=== PATIENT | male | born 1950 | race Caucasian/White ===

== ENCOUNTER 2017-08-10 15:36 | Observation (INO) | payer MEDICARE ==
[2017-08-10 15:51] VITALS: O2SAT 99
[2017-08-10] MEDS ORDERED: Sodium Chloride 0.9% 1,000 ML IV ONE (16:32)
--- NOTE | 2017-08-10 16:38 | C.PDOC ---
History Of Present Illness <Elaine Cano - Last Filed: 08/10/17 18:48> <Scot Spencer - Last Filed: 08/11/17 04:06> 66 yo male BIBA for evaluation of facial contusion, head injury, alcohol intoxication. As per pt, " was drinking today and fell down at home early". Pt is verbal, slurred speech, unable to give more history on present illness. ( Elaine Cano) History Per: Patient, EMS <Elaine Cano - Last Filed: 08/10/17 18:48> <TjScot Palm - Last Filed: 08/11/17 04:06> Time Seen by Provider: 08/10/17 16:05 Chief Complaint (Nursing): Substance Abuse Past Medical History Reviewed: Historical Data, Nursing Documentation, Vital Signs - Medical History PMH: Back Problems, CVA Surgical History: Back Surgery Family History: States: Unknown Family Hx - Social History Hx Tobacco Use: No Hx Alcohol Use: Yes Hx Substance Use: No - Immunization History Hx Tetanus Toxoid Vaccination: Yes (2016) Hx Influenza Vaccination: No Hx Pneumococcal Vaccination: No <Elaine Cano - Last Filed: 08/10/17 18:48> Review Of Systems Review Of Systems: ROS cannot be obtained secondary to pt's inabilty to answer questions. (intoxicated) Skin: Positive for: Bruising <Elaine Cano - Last Filed: 08/10/17 18:48> Physical Exam - Physical Exam Appears: Non-toxic Skin: Normal Color, Warm, Ecchymosis (facial) Head: Normacephalic, Abrasion (Left face overlying zygoma with mod edema. no palpable deformity.) Eye(s): bilateral: PERRL (2mm, slugish reactive to light B/L) Ear(s): Bilateral: Normal Nose: No Flaring, No Deformity, No Tenderness Oral Mucosa: Moist, No Drooling, No Trismus Tongue: Normal Appearing, No Bite Lips: Normal Appearing Throat: No Drooling Neck: No Midline Cervical Tenderness, No Paracervical Tenderness, No Step Off Deformity, Supple Cardiovascular: Rhythm Regular Respiratory: No Decreased Breath Sounds, No Accessory Muscle Use, No Rales, No Rhonchi, No Stridor, No Wheezing Gastrointestinal/Abdominal: Soft, No Tenderness, No Distention, No Guarding Back: No CVA Tenderness, No Vertebral Tenderness Extremity: Normal ROM (noted to move B/L UEs and LEs without difficulty.), No Deformity, No Swelling Neurological/Psych: Oriented x3, Normal Speech, Normal Motor, Normal Sensation <Elaine Cano - Last Filed: 08/10/17 18:48> ED Course And Treatment - Laboratory Results Result Diagrams: 08/10/17 17:50 08/10/17 17:50 Lab Interpretation: Normal O2 Sat by Pulse Oximetry: 99 Pulse Ox Interpretation: Normal - CT Scan/US Head CT Other Rad Studies (CT/US): Read By Radiologist, Radiology Report Reviewed CT/US Interpretation: Accession No. : [id number]. Patient Name / ID : BUD CESAR / [id number]. Exam Date : 08/10/2017 16:55:58 ( Approved ). Study Comment : Sex / Age : M / 66Y. Creator : Jeny Wilhelm. Dictator : Jeny Wilhelm. 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 Approver2 : Report Date : 08/10/2017 17:29:51. My Comment : . PROCEDURE: CT HEAD WITHOUT CONTRAST. HISTORY: injury. COMPARISON: Comparison is made to the previous study dated 12/20/2016. TECHNIQUE: Axial computed tomography images were obtained through the head/brain without intravenous contrast. Radiation dose: Total exam DLP = 923.63 mGy-cm. This CT exam was performed using one or more of the following dose reduction techniques: Automated exposure control, adjustment of the mA and/or kV according to patient size, and/or use of iterative reconstruction technique. FINDINGS: HEMORRHAGE: No intracranial hemorrhage. BRAIN: Small encephalomalacia at the left basal ganglia and thalamus are again seen suggestive of old lacunar infarct. Moderate atrophy and chronic microvascular white matter ischemic disease are again noted. VENTRICLES : Unremarkable. No hydrocephalus. CALVARIUM: Unremarkable. PARANASAL SINUSES : Unremarkable as visualized. No significant inflammatory changes. MASTOID AIR CELLS: Unremarkable as visualized. No inflammatory changes. OTHER FINDINGS : None. IMPRESSION: No evidence of acute intracranial hemorrhage intracranial collection mass effect or midline shift. Moderate atrophy and moderate chronic microvascular white matter ischemic disease. Maxillofacial CT Other Rad Studies (CT/US): Read By Radiologist, Radiology Report Reviewed CT/US Interpretation: PROCEDURE: CT MAXILLOFACIAL BONES WITHOUT CONTRAST. HISTORY: injury. COMPARISON: None. TECHNIQUE: Contiguous axial CT images of the maxillofacial bones were obtained. Coronal and sagittal reformats were generated. Radiation dose: Total exam DLP = 898.84 mGy-cm. This CT exam was performed using one or more of the following dose reduction techniques: Automated exposure control, adjustment of the mA and/or kV according to patient size, and/or use of iterative reconstruction technique. FINDINGS: NASAL BONES : Nondisplaced left nasal bone fracture. ORBITS: Unremarkable. PARANASAL SINUSES/ MASTOIDS: 2.2 centimeter mucosal retention cyst versus polyp at the right maxillary sinus. At the. MAXILLA: Unremarkable. MANDIBLE/ TEMPOROMANDIBULAR JOINTS: Unremarkable. SKULL BASE: Unremarkable. TEMPORAL BONES: Middle ears and mastoid grossly unremarkable. OTHER FINDINGS: Subcutaneous soft tissue swelling and small hematoma at the left face anterior to the maxillary sinus. IMPRESSION: Nondisplaced fracture at the left nasal bone. Otherwise no evidence of acute fracture at the maxillofacial bones. <Elaine Cano - Last Filed: 08/10/17 18:48> - Laboratory Results Result Diagrams: 08/10/17 17:50 08/10/17 17:50 <Scot Spencer - Last Filed: 08/11/17 04:06> ED OBSERVATION Date of observation admission: 08/10/17 Time of observation admission: 16:50 <Elaine Cano - Last Filed: 08/10/17 18:48> <Scot Spencer - Last Filed: 08/11/17 04:06> - Observation admission statement Patient is being placed in observation because:: Alcohol intoxication, head injury (Elaine Cano) - Goals of Observation Goals of observation are:: Diagnostics, imaging, neuro re-eval, dispo (Elaine Cano) - Progress Note Progress Note: 08/10/17 At 18:52, pt resting comfortably in bed, not in any apparent distress. AFebrile, hemodynamicaly stable. Pt is easily responsive to verbal stimuli. Neuorlogicaly intact. Diagnosis review and appears normal. Imaging review- small nasal bone fracture, otherwise, no other acute abnormalities. Pt sign out to for further care: sobriety, re-eval, dispo (Elaine Cano) Disposition <Elaine Cano - Last Filed: 08/10/17 18:48> Counseled Patient/Family Regarding: Diagnosis - Disposition Disposition Time: 05:30 - POA Present On Arrival: None <Scot Spencer - Last Filed: 08/11/17 04:06> - Disposition Disposition: HOME/ ROUTINE Condition: STABLE - Clinical Impression Clinical Impression: Alcohol intoxication, Fracture closed, nasal bone Physician Patient Turnover Patient Signed Over To: Scot Spencer Handoff Comments: Sobriety, re-eval, dispo <Elaine Cano - Last Filed: 08/10/17 18:48>
--- NOTE | 2017-08-10 17:31 | CT ---
PROCEDURE: CT HEAD WITHOUT CONTRAST. HISTORY: injury COMPARISON: Comparison is made to the previous study dated 12/20/2016 TECHNIQUE: Axial computed tomography images were obtained through the head/brain without intravenous contrast. Radiation dose: Total exam DLP = 923.63 mGy-cm. This CT exam was performed using one or more of the following dose reduction techniques: Automated exposure control, adjustment of the mA and/or kV according to patient size, and/or use of iterative reconstruction technique. FINDINGS: HEMORRHAGE: No intracranial hemorrhage. BRAIN: Small encephalomalacia at the left basal ganglia and thalamus are again seen suggestive of old lacunar infarct. Moderate atrophy and chronic microvascular white matter ischemic disease are again noted. VENTRICLES: Unremarkable. No hydrocephalus. CALVARIUM: Unremarkable. PARANASAL SINUSES: Unremarkable as visualized. No significant inflammatory changes. MASTOID AIR CELLS: Unremarkable as visualized. No inflammatory changes. OTHER FINDINGS: None. IMPRESSION: No evidence of acute intracranial hemorrhage intracranial collection mass effect or midline shift. Moderate atrophy and moderate chronic microvascular white matter ischemic disease.
--- NOTE | 2017-08-10 17:38 | CT ---
PROCEDURE: CT MAXILLOFACIAL BONES WITHOUT CONTRAST HISTORY: injury COMPARISON: None TECHNIQUE: Contiguous axial CT images of the maxillofacial bones were obtained. Coronal and sagittal reformats were generated. Radiation dose: Total exam DLP = 898.84 mGy-cm. This CT exam was performed using one or more of the following dose reduction techniques: Automated exposure control, adjustment of the mA and/or kV according to patient size, and/or use of iterative reconstruction technique. FINDINGS: NASAL BONES: Nondisplaced left nasal bone fracture. ORBITS: Unremarkable. PARANASAL SINUSES/ MASTOIDS: 2.2 centimeter mucosal retention cyst versus polyp at the right maxillary sinus. At the MAXILLA: Unremarkable. MANDIBLE/ TEMPOROMANDIBULAR JOINTS: Unremarkable. SKULL BASE: Unremarkable. TEMPORAL BONES: Middle ears and mastoid grossly unremarkable. OTHER FINDINGS: Subcutaneous soft tissue swelling and small hematoma at the left face anterior to the maxillary sinus. IMPRESSION: Nondisplaced fracture at the left nasal bone. Otherwise no evidence of acute fracture at the maxillofacial bones.
[2017-08-10] MEDS ORDERED: Sodium Chloride 0.9% 1,000 ML ONE (17:39)
[2017-08-10 17:58] LABS: BASO % 0.5 % (0.0-2.0); EOS % 0.4 % (0.0-4.0); HEMATOCRIT 36.9 % (35.0-51.0); LYMPH % 23.3 % (20.0-40.0); MEAN CELL VOLUME 106.3 fL (80.0-94.0); MEAN CORPUSCULAR HEMOGLOBIN 36.9 pg (27.0-31.0); MEAN CORPUSCULAR HGB CONC 34.7 g/dL (33.0-37.0); MEAN PLATELET VOLUME 8.8 fL (7.2-11.7); MONO # 0.5 K/uL (0.0-0.8); MONO % 5.6 % (0.0-10.0); RED CELL DISTRIBUTION WIDTH 13.2 % (11.5-14.5); WHITE BLOOD COUNT 8.4 K/uL (4.8-10.8)
[2017-08-10 18:01] LABS: CHLORIDE 105 mmol/L (98-107)
[2017-08-10 18:02] LABS: POTASSIUM 3.6 mmol/L (3.6-5.2); SODIUM 147 mmol/L (132-148)
[2017-08-10 18:04] LABS: ALB/GLOB RATIO 1.5 (1.0-2.1); ALKALINE PHOSPHATASE 55 U/L (38-126); ALT/SGPT 34 U/L (21-72); AST/SGOT 38 U/L (17-59); BILIRUBIN,TOTAL 1.2 mg/dL (0.2-1.3); BLOOD UREA NITROGEN 10 mg/dL (9-20); CARBON DIOXIDE 28 mmol/L (22-30); GFR AFRICAN-AMERICAN > 60; GLUCOSE,RANDOM 84 mg/dL (75-110); TOTAL PROTEIN 7.5 g/dL (6.3-8.3)
[2017-08-10 18:05] LABS: ALCOHOL SERUM 159 mg/dl (0-10); CALCIUM 9.1 mg/dl (8.6-10.4)
[2017-08-10 19:51] LABS: RBC URINE < 1 /hpf (0-3); URINE BILIRUBIN NEGATIVE (NEGATIVE); URINE BLOOD NEGATIVE (NEGATIVE); URINE COLOR Yellow (YELLOW); URINE GLUCOSE (UA) NORMAL (Normal); URINE KETONE NEGATIVE (NEGATIVE); URINE LEUKOCYTE ESTERASE NEG Leu/uL (Negative); URINE PROTEIN NEGATIVE (NEGATIVE); WBC URINE < 1 /hpf (0-5)
[2017-08-11 03:22] VITALS: RESP 16
[2017-08-11 05:40] VITALS: BP 138/88; PULSE 98; TEMP 98.5
== END 2017-08-11 05:27 | disposition home or self-care (01) ==
LOC: C.ER 15:36 → C.9OBSV 16:50
PROVIDERS: ADMIT Emergency Medicine; ATTEND Emergency Medicine
DX: F10.229 Alcohol dependence with intoxication, unspecified (principal); S02.2XXA Fracture of nasal bones, initial encounter for closed fracture; S09.90XA Unspecified injury of head, initial encounter; X58.XXXA Exposure to other specified factors, initial encounter
CPT/HCPCS: 70450; 70486; 80053; 81001; 85025; 96360; G0378; G0480; J7040

== ENCOUNTER 2017-11-02 22:56 | Emergency (ER) | payer MEDICARE ==
[2017-11-02 23:11] VITALS: RESP 18
[2017-11-02] MEDS ORDERED: Bacitracin 500 Units/gm Oint Foilpak UD TOP ONE (23:45)
[2017-11-02] MEDS ORDERED: Epinephrine /Lidocaine HCL 1:100,000/2% 30 ml INJ ONE (23:45)
[2017-11-03] MEDS ORDERED: Bacitracin 500 Units/gm Oint Foilpak UD ONE (00:01)
[2017-11-03] MEDS ORDERED: Lidocaine 2% Inj (20ml) ONE (00:01)
[2017-11-03 00:09] LABS: BASO % 0.5 % (0.0-2.0); EOS % 0.4 % (0.0-4.0); HEMATOCRIT 36.8 % (35.0-51.0); LYMPH # 1.2 K/uL (1.0-4.3); LYMPH % 23.2 % (20.0-40.0); MEAN CELL VOLUME 104.7 fL (80.0-94.0); MEAN CORPUSCULAR HEMOGLOBIN 35.7 pg (27.0-31.0); MEAN CORPUSCULAR HGB CONC 34.1 g/dL (33.0-37.0); MEAN PLATELET VOLUME 8.5 fL (7.2-11.7); MONO # 0.4 K/uL (0.0-0.8); MONO % 7.1 % (0.0-10.0); RED CELL DISTRIBUTION WIDTH 13.2 % (11.5-14.5); WHITE BLOOD COUNT 5.4 K/uL (4.8-10.8)
[2017-11-03 00:30] LABS: ALB/GLOB RATIO 1.1 (1.0-2.1); ALCOHOL SERUM < 10 mg/dl (0-10); ALKALINE PHOSPHATASE 52 U/L (38-126); ALT/SGPT 30 U/L (21-72); AST/SGOT 19 U/L (17-59); BILIRUBIN,TOTAL 1.3 mg/dL (0.2-1.3); BLOOD UREA NITROGEN 8 mg/dL (9-20); CALCIUM 8.5 mg/dl (8.6-10.4); CARBON DIOXIDE 32 mmol/L (22-30); CHLORIDE 101 mmol/L (98-107); GFR AFRICAN-AMERICAN > 60; GLUCOSE,RANDOM 87 mg/dL (75-110); POTASSIUM 3.6 mmol/L (3.6-5.2); SODIUM 140 mmol/L (132-148); TOTAL PROTEIN 8.2 g/dL (6.3-8.3)
--- NOTE | 2017-11-03 00:42 | C.PDOC ---
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 Patient is a poor historian and reports to the RN that he had "2 shots of vodka". Denies LOC, neck pain, or headache. Time Seen by Provider: 11/02/17 23:07 Chief Complaint (Nursing): Abnormal Skin Integrity History Per: Patient History/Exam Limitations: no limitations Onset/Duration Of Symptoms: Hrs Current Symptoms Are (Timing): Still Present Location Of Injury: Left: Face Quality Of Symptoms: Other (Laceration) Recent travel outside of the [place]: No Past Medical History Reviewed: Historical Data, Nursing Documentation, Vital Signs Vital Signs: Last Vital Signs Temp 98.6 F 11/03/17 05:36 Pulse 81 11/03/17 05:36 Resp 18 11/03/17 05:36 BP 115/70 11/03/17 05:36 Pulse Ox 100 11/03/17 05:36 - Medical History PMH: Back Problems, CVA Surgical History: Back Surgery Family History: States: Unknown Family Hx - Social History Hx Tobacco Use: No Hx Alcohol Use: Yes Hx Substance Use: No - Immunization History Hx Tetanus Toxoid Vaccination: Yes (2015) Hx Influenza Vaccination: No Hx Pneumococcal Vaccination: No Review Of Systems Except As Marked, All Systems Reviewed And Found Negative. Musculoskeletal: Negative for: Neck Pain Skin: Positive for: Other (Laceration) Neurological: Negative for: Headache, Other (LOC) Physical Exam - Physical Exam Appears: Non-toxic Skin: Normal Color, Warm, Dry Head: Normacephalic, Laceration (4cm Y shaped laceration to left eyebrow), Other (2cm area of swelling and abrasion to left cheek) Eye(s): bilateral: Normal Inspection, PERRL, EOMI, Other (arcus senilis) Ear(s): Bilateral: Normal Oral Mucosa: Moist Neck: Normal, No Midline Cervical Tenderness, No Paracervical Tenderness, Supple Chest: Symmetrical, Tenderness (Mild left anterior chest wall) Cardiovascular: Rhythm Regular, No Friction Rub, No Murmur Respiratory: Normal Breath Sounds, No Rales, No Rhonchi, No Wheezing Gastrointestinal/Abdominal: Soft, No Tenderness Back: No CVA Tenderness, No Vertebral Tenderness, No Paraspinal Tenderness Extremity: Normal ROM (x4), No Deformity Neurological/Psych: Oriented x3, Normal Speech, Normal Cranial Nerves, Normal Motor, Normal Sensation Gait: Steady ED Course And Treatment - Laboratory Results Result Diagrams: 11/03/17 00:04 11/03/17 00:04 O2 Sat by Pulse Oximetry: 99 (Room air) Pulse Ox Interpretation: Normal Laceration - Laceration Repair eyebrow Wound Length (In cm): 4 Description Of Wound: Stellate (Y-shaped) Wound Cleansed With: Betadine, Sterile Saline Anesthesia: Lidocaine 1% Wound Examination: Irrigated With Saline, No FB With Wound Exploration Wound Closure: Suture Suture Technique And Material Used: Prolene (Six), Vicryl (Two) Wound Complexity: Intermediate (2 buried sutures) Medical Decision Making Medical Decision Making: Upon further questioning, patient reports he fell 2 days ago and injured his left ribs. CT cervical spine, CT head, CT maxillofacial, and CXR ordered. On re-exam, the patient reports improvement of symptoms. Abdomen is soft, non- tender and tolerating PO well. Lungs are CTA, heart is RRR. Ambulatory in the ED steady gait. Disposition - Disposition Referrals: [facility] [Outside] Disposition: HOME/ ROUTINE Disposition Time: 05:03 Condition: GOOD Additional Instructions: Clean the wound twice a day and apply bacitracin. Sutures to be removed within 5 -7 days. Follow up with the medical doctor within 1-2 days. Return if worsened Prescriptions: Bacitracin Ointment [Bacitracin] 30 gm TOP BID #1 tube Instructions: Nasal Fracture (ED), Facial Contusion (ED) Forms: [employer] (Sammarinese) - POA Present On Arrival: None - Clinical Impression Clinical Impression: Eyebrow laceration, Nasal fracture, Head injury - PA / MECHATRONICS TECHNOLOGIST / Resident Statement MD/DO has reviewed & agrees with the documentation as recorded. - Scribe Statement The provider has reviewed the documentation as recorded by the Scribrocio Kirby All medical record entries made by the Scribe were at my direction and personally dictated by me. I have reviewed the chart and agree that the record accurately reflects my personal performance of the history, physical exam, medical decision making, and the department course for this patient. I have also personally directed, reviewed, and agree with the discharge instructions and disposition.
--- NOTE | 2017-11-03 01:37 | CT ---
EXAM: CT Head Without Intravenous Contrast CLINICAL HISTORY: 67 years old, male; Injury or trauma; Fall; Initial encounter; Blunt trauma (contusions or hematomas); Consciousness not specified; Additional info: Head injury R/O bleeding TECHNIQUE: Axial computed tomography images of the head/brain without intravenous contrast. All CT scans at this facility use one or more dose reduction techniques, viz.: automated exposure control; ma/kV adjustment per patient size (including targeted exams where dose is matched to indication; i.e. head); or iterative reconstruction technique. Coronal and sagittal reformatted images were created and reviewed. COMPARISON: No relevant prior studies available. FINDINGS: Brain: Moderate atrophy. No intracranial hemorrhage. No mass. Few scattered foci of decreased attenuation within periventricular/subcortical white matter. Probable chronic lacunar infarcts about basal ganglia. Chronic lacunar infarct within LEFT thalamus. No edema. Ventricles: No hydrocephalus. Bones/joints: No calvarial fracture. Soft tissues: Minimal scalp swelling. Vasculature: Mild atherosclerotic disease of intracranial arteries. Mastoid air cells: No mastoid effusion. IMPRESSION: 1. No intracranial hemorrhage. 2. Nonspecific white matter changes. 3. See facial bone CT report for additional details. 4. Incidental/non-acute findings are described above.
--- NOTE | 2017-11-03 01:44 | CT ---
EXAM: CT Maxillofacial Without Intravenous Contrast CLINICAL HISTORY: 67 years old, male; Injury or trauma; Fall; Initial encounter; Laceration; Orbit/periorbital; Left; Without residual foreign body; Additional info: Facial injuries, nasal trauma, swelling l cheek TECHNIQUE: Axial computed tomography images of the face without intravenous contrast. All CT scans at this facility use one or more dose reduction techniques, viz.: automated exposure control; ma/kV adjustment per patient size (including targeted exams where dose is matched to indication; i.e. head); or iterative reconstruction technique. Coronal and sagittal reformatted images were created and reviewed. COMPARISON: No relevant prior studies available. FINDINGS: Bones/joints: Minimal diastasis LEFT zygomatic and LEFT zygomaticofrontal sutures, age indeterminate. Nondisplaced fracture RIGHT nasal bone, age indeterminate. Mildly displaced fracture LEFT nasal bone, age indeterminate. Age indeterminate avulsion fracture of maxillary spine vs adjacent soft tissue calcification. Soft tissues: LEFT facial soft tissue swelling/air. Tiny dermal calcification or foreign body LEFT periorbital region. Orbits: Unremarkable as visualized. Sinuses: Scattered minimal to mild mucosal thickening. RIGHT maxillary retention cyst. No air-fluid levels. IMPRESSION: 1. Possible facial fractures as above. 2. Incidental/non-acute findings are described above.
--- NOTE | 2017-11-03 01:48 | CT ---
EXAM: CT Cervical Spine Without Intravenous Contrast CLINICAL HISTORY: 67 years old, male; Injury or trauma; Fall; Initial encounter; Sprain or strain, cervical ligaments; Additional info: Fall, TECHNIQUE: Axial computed tomography images of the cervical spine without intravenous contrast. All CT scans at this facility use one or more dose reduction techniques, viz.: automated exposure control; ma/kV adjustment per patient size (including targeted exams where dose is matched to indication; i.e. head); or iterative reconstruction technique. Coronal and sagittal reformatted images were created and reviewed. COMPARISON: No relevant prior studies available. FINDINGS: Vertebrae: No acute fracture. Degenerative retrolithesis of lower cervical spine. Discs/spinal canal/neural foramina: Early degenerative disc disease within mid cervical spine. Moderate degenerative disc disease within lower cervical spine. Disc herniations within mid and lower cervical spine, suboptimally evaluated. Mild indentation thecal sac/cord mid cervical spine. [id number] indentation thecal sac/cord lower cervical spine. Neuroforaminal narrowing within lower cervical spine. Soft tissues: Unremarkable. Vasculature: Mild atherosclerotic disease. Sinuses: Scattered minimal mucosal thickening. RIGHT maxillary retention cyst. Lung apices: Unremarkable as visualized. IMPRESSION: 1. No fracture. 2. Incidental/non-acute findings are described above.
[2017-11-03 05:37] VITALS: BP 115/70; PULSE 81; TEMP 98.6
[2017-11-03 06:51] VITALS: O2SAT 99
--- NOTE | 2017-11-03 09:04 | RAD ---
PROCEDURE: CHEST RADIOGRAPH, 1 VIEW HISTORY: fall, rib contusion COMPARISON: None available. FINDINGS: LUNGS: Clear. PLEURA: No pneumothorax or pleural fluid seen. CARDIOVASCULAR: Normal. OSSEOUS STRUCTURES: Old lateral left 10th rib fracture deformity -possible trace old deformity lateral left 9th rib as well Diffuse thoracic spondylosis Osseous hypertrophic changes over each medial 1st rib -sternum. C7 incomplete closure. VISUALIZED UPPER ABDOMEN: Normal. OTHER FINDINGS: None. IMPRESSION: No acute cardiopulmonary pathology. Old left rib fractures. If clinically suspect acute on chronic pathology, consider more sensitive evaluation with a left or right both ribs series -per patient's pain. No gross acute rib fracture appreciated on this single frontal view
== END 2017-11-03 05:37 | disposition home or self-care (01) ==
LOC: C.ER 22:56
DX: S02.2XXA Fracture of nasal bones, initial encounter for closed fracture (principal); S01.112A Laceration without foreign body of left eyelid and periocular area, initial encounter; W01.0XXA Fall on same level from slipping, tripping and stumbling without subsequent striking against object, initial encounter
CPT/HCPCS: 12052; 70450; 70486; 71010; 72125; 80053; 85025; 85610; 85730; 99285; G0480

== ENCOUNTER 2017-12-17 12:34 | Emergency (ER) | payer MEDICARE ==
[2017-12-17 12:56] VITALS: BP 98/63; PULSE 109; RESP 18; TEMP 97.8; O2SAT 100
--- NOTE | 2017-12-17 13:48 | C.PDOC ---
History Of Present Illness 67 y/o M p/w fall 1 week ago. states patient fell down 8 steps at home 1 week prior. She states she has not been off of work since then but today, she did not have work so she brought her to the ED for evaluation. Patient reports pain of the L shoulder and L sided rib cage, sharp pain, worse with movement or palpation, nonradiating. He states that he was dizzy prior to the fall. He states he was not drinking alcohol. He describes the dizziness as a spinning sensation as opposed to a lightheadedness. He notes that the spinning sensation has been ongoing for some time and is intermittent and occurs when he moves suddenly. Denies fever, chills, chest pain, dyspnea, nausea, vomiting, diarrhea, dysuria, numbness, or weakness. Time Seen by Provider: 12/17/17 13:09 Chief Complaint (Nursing): Dizziness/Lightheaded Past Medical History Vital Signs: Last Vital Signs Temp 97.8 F 12/17/17 12:51 Pulse 109 H 12/17/17 12:51 Resp 18 12/17/17 12:51 BP 98/63 L 12/17/17 12:51 Pulse Ox 100 12/17/17 14:31 - Medical History PMH: Back Problems, CVA Surgical History: Back Surgery Family History: States: Unknown Family Hx - Social History Hx Tobacco Use: No Hx Alcohol Use: No Hx Substance Use: No - Immunization History Hx Tetanus Toxoid Vaccination: Yes (2015) Hx Influenza Vaccination: No Hx Pneumococcal Vaccination: No Review Of Systems Except As Marked, All Systems Reviewed And Found Negative. Constitutional: Negative for: Fever Cardiovascular: Negative for: Chest Pain Physical Exam - Physical Exam Additional Physical Exam Comments: Constitutional: No acute distress. Head: Normocephalic. Prolene sutures in place over L eyebrow (patient states were placed during last ED visit here and thought they were going to disintegrate.) No surrounding erythema or discharge. Hypertrophic nodules at suture sites. Eyes: PERRL. EOMI. Arcus sinilis. ENT: Moist mucous membranes. Neck: Supple. No midline tenderness. Cardiovascular: Regular rate. Radial pulses 2+ bilaterally. Chest: L sided rib tenderness, no obvious deformity or crepitus. Respiratory: Clear to auscultation bilaterally. GI: Soft. Nontender. Back: No midline tenderness. Musculoskeletal: No swelling of extremities. Pain with ranging of L shoulder but with FROM and without deformity. Skin: No rash. Neurologic: Alert, no focal deficit. Reproducible symptoms with Nohemi Hallpike to R. ED Course And Treatment - Laboratory Results Result Diagrams: 12/17/17 13:42 12/17/17 13:42 O2 Sat by Pulse Oximetry: 100 Medical Decision Making Medical Decision Making: Sutures removed. Will administer meclizine for symptoms consistent with BPPV. XRs to rule out fracture. Fall was 1 week prior and no headache currently, no CT indicated at this time. EKG NSR 90 bpm, RBBB, no ST elevations, no change from previous. IMPRESSION: Left acromioclavicular dislocation without fracture. IMPRESSION: No acute rib fractures or other significant thoracic abnormalities. Patient placed in sling, f/u Ortho, no numbness or weakness of L arm. Return to ED for worsening pain, numbness, weakness, dyspnea, or any other problem. Disposition - Disposition Referrals: Miguel Jason III, MD [Staff Provider] - Disposition: HOME/ ROUTINE Disposition Time: 15:25 Condition: STABLE Additional Instructions: PROCEDURE: Radiographs of the Left Shoulder HISTORY: fall, shoulder pain COMPARISON: No prior. FINDINGS: BONES: Normal. No fracture. JOINTS: Left acromioclavicular dislocation. No associated fractures. SOFT TISSUES: Normal. OTHER FINDINGS: None. IMPRESSION: Left acromioclavicular dislocation without fracture. Prescriptions: Acetaminophen [Tylenol 325mg tab] 2 tab PO Q4H #30 tab Meclizine [Antivert] 25 mg PO TID PRN #20 tab PRN Reason: Dizziness Instructions: Benign Paroxysmal Positional Vertigo (ED) Forms: [employer]ik[employer]chart (Setswana) - Clinical Impression Clinical Impression: AC joint dislocation, Vertigo, Encounter for removal of sutures
[2017-12-17 13:51] LABS: BASO % 0.4 % (0.0-2.0); EOS % 0.4 % (0.0-4.0); HEMOGLOBIN 13.1 g/dL (12.0-18.0); LYMPH # 1.2 K/uL (1.0-4.3); LYMPH % 14.7 % (20.0-40.0); MEAN CORPUSCULAR HEMOGLOBIN 35.6 pg (27.0-31.0); MEAN CORPUSCULAR HGB CONC 35.1 g/dL (33.0-37.0); MEAN PLATELET VOLUME 8.7 fL (7.2-11.7); MONO # 0.4 K/uL (0.0-0.8); MONO % 5.2 % (0.0-10.0); NEUT # 6.6 K/uL (1.8-7.0); NEUT % 79.3 % (50.0-75.0); RBC 3.69 Mil/uL (4.40-5.90); RED CELL DISTRIBUTION WIDTH 12.1 % (11.5-14.5); WHITE BLOOD COUNT 8.4 K/uL (4.8-10.8)
[2017-12-17 13:55] LABS: MEAN CELL VOLUME 101.4 fL (80.0-94.0)
[2017-12-17 14:00] LABS: ALB/GLOB RATIO 1.2 (1.0-2.1); ALBUMIN 4.3 g/dL (3.5-5.0); ALT/SGPT 19 U/L (21-72); AST/SGOT 30 U/L (17-59); BLOOD UREA NITROGEN 16 mg/dL (9-20); CALCIUM 9.7 mg/dl (8.6-10.4); GFR AFRICAN-AMERICAN > 60; GFR NON-AFRICAN AMERICAN > 60
--- NOTE | 2017-12-17 15:18 | RAD ---
PROCEDURE: Radiographs of the Chest and Left Ribs. HISTORY: fall, rib pain COMPARISON: 11/03/2017 single-view chest. TECHNIQUE: Frontal radiograph of the chest and multiple oblique radiographs of the left ribs were obtained. FINDINGS: LEFT RIBS: No acute rib fractures. Old posterior-lateral tenth rib fracture LUNGS: Clear. PLEURA: No pneumothorax or pleural fluid. CARDIOVASCULAR: Normal sized heart. No pulmonary vascular congestion. OTHER FINDINGS: None. IMPRESSION: No acute rib fractures or other significant thoracic abnormalities.
--- NOTE | 2017-12-17 15:19 | RAD ---
PROCEDURE: Radiographs of the Left Shoulder HISTORY: fall, shoulder pain COMPARISON: No prior. FINDINGS: BONES: Normal. No fracture. JOINTS: Left acromioclavicular dislocation. No associated fractures. SOFT TISSUES: Normal. OTHER FINDINGS: None. IMPRESSION: Left acromioclavicular dislocation without fracture.
--- NOTE | 2017-12-18 10:57 | CARD ---
APPROVED REPORT EKG Measurement Heart [id number] <Conclusion> Normal sinus rhythm Right bundle branch block Abnormal ECG
== END 2017-12-17 16:23 | disposition home or self-care (01) ==
LOC: C.ER 12:34
DX: S43.102A Unspecified dislocation of left acromioclavicular joint, initial encounter (principal); W10.8XXA Fall (on) (from) other stairs and steps, initial encounter; Y92.009 Unspecified place in unspecified non-institutional (private) residence as the place of occurrence of the external cause; R42 Dizziness and giddiness; Z48.02 Encounter for removal of sutures
CPT/HCPCS: 71101; 73030; 80053; 82550; 84484; 85025; 93005; 99285; G0480

== ENCOUNTER 2018-03-12 10:40 | Emergency (ER) | payer MEDICARE ==
[2018-03-12 10:56] VITALS: BP 108/71; PULSE 94; RESP 20; TEMP 98.2; O2SAT 98; BMI 16.6
--- NOTE | 2018-03-12 11:37 | RAD ---
HISTORY: cough with yellow sputum COMPARISON: Chest radiograph dated 02/11/2018. TECHNIQUE: Chest PA and lateral FINDINGS: LUNGS: No active pulmonary disease. PLEURA: No significant pleural effusion identified. No pneumothorax apparent. CARDIOVASCULAR: Normal. OSSEOUS STRUCTURES: Old left-sided rib fracture. Unchanged. VISUALIZED UPPER ABDOMEN: Normal. OTHER FINDINGS: None. IMPRESSION: No active disease.
--- NOTE | 2018-03-12 11:58 | C.PDOC ---
History Of Present Illness 67 y/o male brought to ED for left shoulder pain and cough with yellow sputum x 3 weeks. pt finished course of antibiotics with no improvement of cough. pt goes to physical therapy for his shoulder pain, taking tylenol for it, but has not yet seen ortho. no cp or sob. Time Seen by Provider: 03/12/18 11:03 Chief Complaint (Nursing): Upper Extremity Problem/Injury History Per: Patient, Family History/Exam Limitations: no limitations Onset/Duration Of Symptoms: Days (months for shoulder. 3+weeks for cough) Current Symptoms Are (Timing): Still Present Quality: "Pain" Severity: Moderate Exacerbating Factor(s): Movement Past Medical History Reviewed: Historical Data, Nursing Documentation, Vital Signs Vital Signs: Last Vital Signs Temp 98.2 F 03/12/18 10:50 Pulse 94 H 03/12/18 10:50 Resp 20 03/12/18 10:50 BP 108/71 03/12/18 10:50 Pulse Ox 98 03/12/18 12:03 - Medical History PMH: Back Problems, CVA Surgical History: Back Surgery Family History: States: Unknown Family Hx - Social History Hx Tobacco Use: No Hx Alcohol Use: No Hx Substance Use: No - Immunization History Hx Tetanus Toxoid Vaccination: Yes (2016) Hx Influenza Vaccination: No Hx Pneumococcal Vaccination: No Review Of Systems Constitutional: Negative for: Fever, Chills Cardiovascular: Negative for: Chest Pain, Palpitations Respiratory: Positive for: Cough, Sputum. Negative for: Shortness of Breath Musculoskeletal: Positive for: Shoulder Pain (left) Skin: Negative for: Bruising Physical Exam - Physical Exam Appears: Non-toxic, Chronically Ill Skin: Dry Head: Atraumatic, Normacephalic Chest: No Deformity, No Tenderness Cardiovascular: Rhythm Regular, No Murmur Respiratory: No Decreased Breath Sounds, No Rales, No Rhonchi, No Wheezing Extremity: No Normal ROM (dec rom to left shoulder since injury to ac joint), Tenderness (left shoulder), Deformity (ac separation noted to left shoulder), No Swelling Pulses: Left Radial: Normal, Right Radial: Normal Neurological/Psych: Oriented x3, Normal Speech, Normal Cognition ED Course And Treatment O2 Sat by Pulse Oximetry: 98 Medical Decision Making Medical Decision Making: pt has left shoulder pain for several months; not worse, going for pt. continue tylenol. Pt with cough- no pneumonia on xray. Disposition Counseled Patient/Family Regarding: Studies Performed, Diagnosis, Need For Followup - Disposition Referrals: Carlotta Sutton MD [Staff Provider] - Disposition: HOME/ ROUTINE Disposition Time: 11:58 Condition: GOOD Additional Instructions: Please follow up with orthopedics. Call for an appointment. Continue taking Tylenol and going ot physical therapy. Drink increased fluids and avoid dairy for a few days- this will help to thin sputum and make it easier to cough up. Follow up with your primary care doctor in the next week. Instructions: Acute Bronchitis, Adult (DC), Shoulder Forms: [facility] (Tanzanian), General Discharge Instructions - Clinical Impression Clinical Impression: AC joint dislocation, Shoulder pain, left, Bronchitis
== END 2018-03-12 12:14 | disposition home or self-care (01) ==
LOC: C.ER 10:40
DX: S43.102A Unspecified dislocation of left acromioclavicular joint, initial encounter (principal); X58.XXXA Exposure to other specified factors, initial encounter; M25.512 Pain in left shoulder; J40 Bronchitis, not specified as acute or chronic

== ENCOUNTER 2018-06-16 08:36 | Emergency (ER) | payer MEDICARE ==
[2018-06-16 08:57] VITALS: RESP 18
[2018-06-16 08:58] VITALS: BMI 24.9
--- NOTE | 2018-06-16 09:30 | C.PDOC ---
History Of Present Illness 67yo male, brought to ER by EMS as he called 911 after he tripped and fell at home and injured the right side of his ribs. Patient has a history of alcohol abuse as well. He denies any head injury, loss of consciousness, vomiting, weakness, numbness and offers no other complaints. - HPI Time Seen by Provider: 06/16/18 08:40 Chief Complaint (Nursing): Rib Injury History Per: Patient History/Exam Limitations: no limitations Onset/Duration Of Symptoms: Days (1) Location Of Injury: Right: Chest (ribs) Severity: Mild Pain Scale Rating Of: 3 Recent travel outside of the [facility]: No Additional History Per: Patient - Fall Fall:Prior To Injury: Tripped Past Medical History Reviewed: Historical Data, Nursing Documentation, Vital Signs Vital Signs: Last Vital Signs Temp 98.7 F 06/16/18 11:08 Pulse 72 06/16/18 11:08 Resp 18 06/16/18 11:08 BP 116/77 06/16/18 11:08 Pulse Ox 98 06/16/18 15:31 - Medical History PMH: Back Problems, CVA Surgical History: Back Surgery Family History: States: No Known Family Hx, Unknown Family Hx - Social History Hx Tobacco Use: No Hx Alcohol Use: Yes Hx Substance Use: No - Immunization History Hx Tetanus Toxoid Vaccination: Yes (2016) Hx Influenza Vaccination: No Hx Pneumococcal Vaccination: No Review Of Systems Except As Marked, All Systems Reviewed And Found Negative. Constitutional: Negative for: Fever, Chills Cardiovascular: Positive for: Other (right sided ribs pain). Negative for: Chest Pain Respiratory: Negative for: Shortness of Breath Neurological: Negative for: Weakness, Numbness, Headache Physical Exam - Physical Exam Appears: Non-toxic, No Acute Distress Skin: Warm, Dry, No Ecchymosis Head: Atraumatic, Normacephalic Eye(s): bilateral: Normal Inspection Neck: Normal ROM, Supple Chest: Symmetrical, Tenderness (tenderness to right lateral ribs area. no surrounding ecchymosis) Cardiovascular: Rhythm Regular, Other (tenderness in right lateral ribs) Respiratory: Normal Breath Sounds, No Decreased Breath Sounds, No Accessory Muscle Use Back: Normal Inspection Neurological/Psych: Oriented x3 Gait: Steady ED Course And Treatment O2 Sat by Pulse Oximetry: 98 (RA) Pulse Ox Interpretation: Normal - Other Rad CXR X-Ray: Interpreted by Me, Viewed By Me Interpretation: Normal CXR. No fractures noted to ribs. Progress Note: Alcohol serum and CXR ordered. Treated with motrin. 0956. CXR reviewed, no acute findings. Alcohol serum unremarkable. Patient to be discharged home. 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 - Scribe Statement The provider has reviewed the documentation as recorded by the Eliceo Guthrie Provider Attestation: All medical record entries made by the Eliceo were at my direction and personally dictated by me. I have reviewed the chart and agree that the record accurately reflects my personal performance of the history, physical exam, medical decision making, and the department course for this patient. I have also personally directed, reviewed, and agree with the discharge instructions and disposition.
--- NOTE | 2018-06-16 09:54 | RAD ---
Date of service: 06/16/2018 HISTORY: SOB COMPARISON: 03/12/2018 TECHNIQUE: Chest PA and lateral FINDINGS: LUNGS: No active pulmonary disease. PLEURA: No significant pleural effusion identified. No pneumothorax apparent. CARDIOVASCULAR: Normal. OSSEOUS STRUCTURES: No significant abnormalities. VISUALIZED UPPER ABDOMEN: Normal. OTHER FINDINGS: None. IMPRESSION: No active disease.
[2018-06-16 11:10] VITALS: BP 116/77; PULSE 72; TEMP 98.7
[2018-06-16 15:32] VITALS: O2SAT 98
== END 2018-06-16 11:11 | disposition home or self-care (01) ==
LOC: C.ER 08:36
DX: S20.211A Contusion of right front wall of thorax, initial encounter (principal); W01.0XXA Fall on same level from slipping, tripping and stumbling without subsequent striking against object, initial encounter; Y92.009 Unspecified place in unspecified non-institutional (private) residence as the place of occurrence of the external cause
CPT/HCPCS: 71046; 99283; G0480

== ENCOUNTER 2018-07-15 06:29 | Emergency (ER) | payer MEDICARE ==
[2018-07-15 06:30] VITALS: BMI 24.9
--- NOTE | 2018-07-15 07:06 | C.PDOC ---
History Of Present Illness 67-year-old male presents to the ED with complaints of cough for 2 days. Cough is productive of white thick phlegm. Today patient woke up with fever and feeling short of breath. He also reports a scratchy sore throat and states his chest hurts when coughing. is also sick with a cough. Otherwise patient denies any headache, dizziness, palpitations, vomiting, or weakness. Time Seen by Provider: 07/15/18 07:03 Chief Complaint (Nursing): Shortness Of Breath History Per: Patient History/Exam Limitations: no limitations Onset/Duration Of Symptoms: Days Current Symptoms Are (Timing): Still Present Exacerbating Factor(s): Coughing Associated Symptoms: Fever, Productive Cough Past Medical History Reviewed: Historical Data, Nursing Documentation, Vital Signs Vital Signs: Last Vital Signs Temp 98.2 F 07/15/18 09:34 Pulse 74 07/15/18 09:34 Resp 14 07/15/18 09:34 BP 103/68 07/15/18 09:34 Pulse Ox 98 07/15/18 10:42 - Medical History PMH: Back Problems, CVA Other PMH: Myocardial Infarction Surgical History: Back Surgery Family History: States: Unknown Family Hx - Social History Hx Tobacco Use: No Hx Alcohol Use: Yes Hx Substance Use: No - Immunization History Hx Tetanus Toxoid Vaccination: Yes (2016) Hx Influenza Vaccination: No Hx Pneumococcal Vaccination: No Review Of Systems Except As Marked, All Systems Reviewed And Found Negative. Constitutional: Positive for: Fever ENT: Positive for: Throat Pain Cardiovascular: Positive for: Chest Pain (when coughing). Negative for: Palpitations Respiratory: Positive for: Cough, Shortness of Breath, Sputum (white). Negative for: Hemoptysis Gastrointestinal: Negative for: Nausea, Vomiting Neurological: Negative for: Weakness, Numbness, Headache, Dizziness Physical Exam - Physical Exam Appears: No Acute Distress, Chronically Ill Skin: Warm, Dry, No Rash Head: Atraumatic, Normacephalic Eye(s): bilateral: Normal Inspection Nose: Normal Oral Mucosa: Moist Throat: Normal, No Erythema, No Exudate Neck: Normal ROM Chest: Symmetrical, No Tenderness Cardiovascular: Rhythm Regular, No Murmur Respiratory: No Accessory Muscle Use, No Rales, Rhonchi (scattered), No Wheezing Gastrointestinal/Abdominal: Soft, No Tenderness, No Distention Back: Normal Inspection Extremity: Bilateral: Atraumatic, No Pedal Edema, Normal Color And Temperature, Normal ROM Pulses: Left Dorsalis Pedis: Normal, Right Dorsalis Pedis: Normal Neurological/Psych: Oriented x3, Normal Speech Gait: Steady ED Course And Treatment - Laboratory Results Result Diagrams: 07/15/18 07:28 07/15/18 07:28 ECG: Interpreted By Me, Viewed By Me ECG Rhythm: Sinus Rhythm, R BBB ECG Interpretation: No Acute Changes, No Changes From Prior (12/17/17) Interpretation Of ECG: NS at 80 bpm with RBB O2 Sat by Pulse Oximetry: 98 (room air) Pulse Ox Interpretation: Normal - Other Rad CXR X-Ray: Viewed By Me, Read By Radiologist Interpretation: FINDINGS: LUNGS: Lung volumes increased background COPD emphysema [id number]. No infiltrate. PLEURA: No significant pleural effusion identified. No pneumothorax apparent. CARDIOVASCULAR: Normal. OSSEOUS STRUCTURES: Thoracic spondylosis and slight S-shaped thoracolumbar scoliosis. Thoraco lumbar level anterior degenerative type wedging. VISUALIZED UPPER ABDOMEN: Normal. OTHER FINDINGS: None. IMPRESSION : No active disease. No interval pathology noted Medical Decision Making Medical Decision Making: Initial Impression: 67-year-old with productive cough, chest pain, and SOB Initial Plan: --EKG --CMP --Troponin I --Pro-BNP --CBC --PTT/PT --Urinalysis --Chest X-Ray --Tylenol 650 mg PO --Duoneb x1 --Reassessment Progress/Updates: Labs reviewed, and discussed with patient. CXR shows no active disease. Patient given 1 gm IV Rocephin in the ED. On re-examination, patient is resting comfortably in no acute distress. Patient reports improvement of symptoms. Patient feels comfortable going home and will be discharged home with antibiotics. Patient given follow up instructions. Instructed to return to ER if symptoms worsen or new symptoms arise. Disposition Counseled Patient/Family Regarding: Studies Performed, Diagnosis, Need For Followup, Rx Given - Disposition Referrals: Daljit Frazier MD [Staff Provider] - Disposition: HOME/ ROUTINE Disposition Time: 10:50 Condition: STABLE Additional Instructions: Take antibiotic daily Follow up with your primary medical doctor or clinic in 2-5 days for further evaluation. Return to the emergency department at any time if symptoms persist or worsen. Prescriptions: Levofloxacin [Levaquin] 750 mg PO DAILY #5 tablet NS Instructions: Acute Bronchitis, Adult (DC) Forms: [employer] (Welsh) - POA Present On Arrival: None - Clinical Impression Clinical Impression: Bronchitis - PA / INSURANCE AGENCY SALES MANAGER / Resident Statement MD/DO has reviewed & agrees with the documentation as recorded. - Scribe Statement The provider has reviewed the documentation as recorded by the Scribe (Malena Pelayo) All medical record entries made by the Scribe were at my direction and personally dictated by me. I have reviewed the chart and agree that the record accurately reflects my personal performance of the history, physical exam, medical decision making, and the department course for this patient. I have also personally directed, reviewed, and agree with the discharge instructions and disposition.
[2018-07-15] MEDS ORDERED: Albuterol-Ipratrop 3 mg / 0.5 (3 ml) UD INH STA (07:11)
[2018-07-15 07:37] LABS: BASO % 0.7 % (0.0-2.0); EOS # 0.1 K/uL (0.0-0.7); EOS % 1.4 % (0.0-4.0); HEMOGLOBIN 11.5 g/dL (12.0-18.0); LYMPH # 1.4 K/uL (1.0-4.3); MEAN CORPUSCULAR HEMOGLOBIN 35.3 pg (27.0-31.0); MEAN CORPUSCULAR HGB CONC 35.5 g/dL (33.0-37.0); MONO # 0.4 K/uL (0.0-0.8); MONO % 6.4 % (0.0-10.0); NEUT # 4.3 K/uL (1.8-7.0); NEUT % 69.5 % (50.0-75.0); RBC 3.24 Mil/uL (4.40-5.90); RED CELL DISTRIBUTION WIDTH 12.3 % (11.5-14.5); WHITE BLOOD COUNT 6.2 K/uL (4.8-10.8)
[2018-07-15 07:41] LABS: MEAN CELL VOLUME 99.4 fL (80.0-94.0)
[2018-07-15 07:50] LABS: INR 1.2; PROTHROMBIN TIME 12.6 SECONDS (9.7-12.2)
--- NOTE | 2018-07-15 08:09 | RAD ---
Date of service: 07/15/2018 HISTORY: fever, cough COMPARISON: 06/16/2018 TECHNIQUE: Chest PA and lateral FINDINGS: LUNGS: Lung volumes increased background COPD emphysema [id number] No infiltrate PLEURA: No significant pleural effusion identified. No pneumothorax apparent. CARDIOVASCULAR: Normal. OSSEOUS STRUCTURES: Thoracic spondylosis and slight S-shaped thoracolumbar scoliosis Thoraco lumbar level anterior degenerative type wedging. VISUALIZED UPPER ABDOMEN: Normal. OTHER FINDINGS: None. IMPRESSION: No active disease. No interval pathology noted
[2018-07-15 08:27] LABS: ALB/GLOB RATIO 1.3 (1.0-2.1); ALBUMIN 3.9 g/dL (3.5-5.0); ALT/SGPT 18 U/L (21-72); AST/SGOT 17 U/L (17-59); BLOOD UREA NITROGEN 13 mg/dL (9-20); CALCIUM 9.6 mg/dl (8.6-10.4); GFR AFRICAN-AMERICAN > 60; GFR NON-AFRICAN AMERICAN > 60
[2018-07-15] MEDS ORDERED: Albuterol-Ipratrop 3 mg / 0.5 (3 ml) UD ONE (08:28)
[2018-07-15 08:40] LABS: B-TYPE NATRIURETIC PEPTIDE 74.9 pg/mL (0-900)
[2018-07-15 09:35] VITALS: BP 103/68; PULSE 74; RESP 14; TEMP 98.2
[2018-07-15 10:39] VITALS: O2SAT 98
== END 2018-07-15 10:53 | disposition home or self-care (01) ==
LOC: C.ER 06:29
DX: J40 Bronchitis, not specified as acute or chronic (principal)
CPT/HCPCS: 71046; 80053; 83880; 84484; 85025; 85610; 85730; 93005; 96365; 99284; J0696

== ENCOUNTER 2018-09-24 11:15 | Observation (INO) | payer MEDICARE ==
[2018-09-24 11:15] VITALS: BMI 24.9
--- NOTE | 2018-09-24 11:51 | C.PDOC ---
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 At ED patient admits to occasional ETOH use, states he did not drink last night and reports he tripped and fell hitting left side on wall developing symptoms after. Patient is AAOx3 and denies loc, nausea, vomiting, weakness, numbness or any other complaints at this time. - HPI Chief Complaint (Nursing): Trauma History Per: Patient History/Exam Limitations: no limitations Onset/Duration Of Symptoms: Days Past Medical History Reviewed: Historical Data, Nursing Documentation, Vital Signs Vital Signs: Last Vital Signs Temp 98 F 09/24/18 11:32 Pulse 86 09/24/18 11:32 Resp 18 09/24/18 11:32 BP 100/61 09/24/18 11:32 Pulse Ox 98 09/24/18 11:32 - Medical History PMH: Back Problems, CVA Surgical History: Back Surgery Family History: States: No Known Family Hx - Social History Hx Tobacco Use: No Hx Alcohol Use: Yes Hx Substance Use: No - Immunization History Hx Tetanus Toxoid Vaccination: Yes (2015) Hx Influenza Vaccination: No Hx Pneumococcal Vaccination: No Review Of Systems Eyes: Negative for: Vision Change Cardiovascular: Negative for: Chest Pain Musculoskeletal: Positive for: Other (rib pain) Skin: Positive for: Other (abrasion) Neurological: Negative for: Weakness, Numbness, Headache Physical Exam - Physical Exam Appears: Non-toxic, No Acute Distress Skin: Warm, Dry, Other (cachectic, frail, Elderly) Head: Atraumatic, Normacephalic Eye(s): bilateral: PERRL, EOMI, Other (Dilated pupils ) Oral Mucosa: Moist Neck: Normal ROM, Supple, Other (No vein on neck noted) Chest: Tenderness (left ribs ) Cardiovascular: Rhythm Regular Respiratory: Normal Breath Sounds, No Rales, No Rhonchi, No Wheezing Gastrointestinal/Abdominal: No Tenderness, No Guarding, No Rebound, Other (scaphoid abdomen) Back: No CVA Tenderness, No Muscle Spasm Extremity: Normal ROM, Capillary Refill (<2 seconds), No Deformity Neurological/Psych: Oriented x3, Normal Speech, Normal Cognition, Normal Motor, Normal Sensation ED Course And Treatment - Laboratory Results Result Diagrams: 09/24/18 11:55 09/24/18 11:55 O2 Sat by Pulse Oximetry: 98 (RA) Pulse Ox Interpretation: Normal Medical Decision Making Medical Decision Making: Plan: CT head, CT cervical spine, Ribs xray, UA, EKG, Blood work, Drug screen ordered Disposition Discussed With : Rohan Roberts Counseled Patient/Family Regarding: Studies Performed, Need For Followup - Disposition Disposition Time: 14:46 Condition: STABLE Forms: [employer] (Equ[place]an) - Clinical Impression Clinical Impression: Fall, Chest wall pain, Confusion state - Scribe Statement The provider has reviewed the documentation as recorded by the Scribe Abundio oJyner All medical record entries made by the Scribe were at my direction and personally dictated by me. I have reviewed the chart and agree that the record accurately reflects my personal performance of the history, physical exam, medi brent decision making, and the department course for this patient. I have also personally directed, reviewed, and agree with the discharge instructions and disposition. Decision To Admit - Pt Status Changed To: Hospital Disposition Of: Observation - InPatient: Physician Admission Certification: I certify that this patient requires 2 or more midnights of care for the following reason:: fall, rib pain, confusion - . Bed Request Type: Regular Patient Diagnosis: Fall, Chest wall pain, Confusion state
[2018-09-24 12:02] LABS: BASO % 0.5 % (0.0-2.0); EOS # 0.1 K/uL (0.0-0.7); EOS % 0.8 % (0.0-4.0); HEMOGLOBIN 11.6 g/dL (12.0-18.0); LYMPH # 1.5 K/uL (1.0-4.3); LYMPH % 21.9 % (20.0-40.0); MEAN CELL VOLUME 97.9 fL (80.0-94.0); MEAN CORPUSCULAR HEMOGLOBIN 33.7 pg (27.0-31.0); MEAN CORPUSCULAR HGB CONC 34.4 g/dL (33.0-37.0); MEAN PLATELET VOLUME 8.4 fL (7.2-11.7); MONO # 0.4 K/uL (0.0-0.8); NEUT # 4.8 K/uL (1.8-7.0); NEUT % 70.8 % (50.0-75.0); NRBC % 0.1 % (0.0-2.0); RBC 3.43 Mil/uL (4.40-5.90); RED CELL DISTRIBUTION WIDTH 12.2 % (11.5-14.5); WHITE BLOOD COUNT 6.8 K/uL (4.8-10.8)
[2018-09-24 12:15] LABS: URINE BILIRUBIN NEGATIVE (NEGATIVE); URINE BLOOD NEGATIVE (NEGATIVE); URINE CLARITY Clear (Clear); URINE COLOR Amber (YELLOW); URINE GLUCOSE (UA) NORMAL (Normal); URINE LEUKOCYTE ESTERASE NEG Leu/uL (Negative); URINE PROTEIN NEGATIVE (NEGATIVE)
[2018-09-24 12:16] LABS: ALB/GLOB RATIO 1.3 (1.0-2.1); ALBUMIN 4.5 g/dL (3.5-5.0); ALT/SGPT 27 U/L (21-72); AST/SGOT 38 U/L (17-59); BLOOD UREA NITROGEN 18 mg/dL (9-20); CALCIUM 10.3 mg/dl (8.6-10.4); GFR NON-AFRICAN AMERICAN > 60
--- NOTE | 2018-09-24 12:40 | CT ---
Date of service: 09/24/2018 PROCEDURE: CT HEAD WITHOUT CONTRAST. HISTORY: fall COMPARISON: None available. TECHNIQUE: Axial computed tomography images were obtained through the head/brain without intravenous contrast. Radiation dose: Total exam DLP = 994.08 mGy-cm. This CT exam was performed using one or more of the following dose reduction techniques: Automated exposure control, adjustment of the mA and/or kV according to patient size, and/or use of iterative reconstruction technique. FINDINGS: HEMORRHAGE: No intracranial hemorrhage. BRAIN: Diffuse atrophy with prominence of the ventricles and sulci noted. No mass effect or edema. Scattered periventricular and subcortical white matter hypodensities, which are nonspecific, but often seen with chronic microvascular ischemic disease. Please note that MRI with diffusion imaging is more sensitive in the detection of acute ischemic event. VENTRICLES: No hydrocephalus. CALVARIUM: Unremarkable. PARANASAL SINUSES: Unremarkable as visualized. No significant inflammatory changes. MASTOID AIR CELLS: Unremarkable as visualized. No inflammatory changes. OTHER FINDINGS: None. IMPRESSION: No acute intracranial pathology identified. Generalized atrophy. Nonspecific white matter changes.
[2018-09-24 12:43] LABS: BARBITURATES, UR NEGATIVE (NEGATIVE); BENZODIAZEPINES, UR NEGATIVE (NEGATIVE); OPIATES, UR NEGATIVE (NEGATIVE); PHENCYCLIDINE, UR NEGATIVE (NEGATIVE)
--- NOTE | 2018-09-24 12:59 | RAD ---
Date of service: 09/24/2018 PROCEDURE: Radiographs of the chest and bilateral ribs HISTORY: Fall COMPARISON: None available. TECHNIQUE: Frontal radiograph of the chest and multiple oblique radiographs of the bilateral ribs were obtained. FINDINGS: RIGHT RIBS: There is no acute rib fracture. Bone alignment and mineralization are normal. LEFT RIBS: No acute fracture or focal lesion visualized.There is an old fracture deformity in the left anterior 3rd rib. LUNGS: The lungs are well inflated and clear. PLEURA: No pneumothorax or pleural fluid. CARDIOVASCULAR: Normal cardiac size. No aortic atherosclerotic calcifications present. No pulmonary vascular congestion. No aortic atherosclerotic calcification present OTHER FINDINGS: None. IMPRESSION: No acute rib fracture. Old fracture deformity in the left anterior 3rd rib.
--- NOTE | 2018-09-24 13:11 | CT ---
Date of service: 09/24/2018 PROCEDURE: CT Cervical Spine without contrast HISTORY: fall COMPARISON: None available. TECHNIQUE: Axial computed tomography images were obtained of the cervical spine without the use of intravenous contrast. Coronal and sagittal reformatted images were created and reviewed. Radiation dose: Total exam DLP = 310.55 mGy-cm. This CT exam was performed using one or more of the following dose reduction techniques: Automated exposure control, adjustment of the mA and/or kV according to patient size, and/or use of iterative reconstruction technique. FINDINGS: VERTEBRAE: There straightening of the cervical spine with loss of normal cervical lordosis. There is degenerative 3 mm retrolisthesis of C4 on C5 C5 on C6 and 2 mm retrolisthesis of C6 on C7. there is no acute fracture or traumatic anterior listhesis. The craniocervical junction is normal. The atlantoaxial joint is normal. No prevertebral soft tissue thickening. DISCS/SPINAL CANAL/NEURAL FORAMINA: There is multilevel degenerative disc disease due to combination of disc osteophyte complexes, uncovertebral joint hypertrophy and multilevel facet arthropathy, worse at C5-6 with severe right and mild left neural foraminal narrowing. No spinal canal stenosis. PARASPINAL SOFT TISSUES: The paraspinous soft tissues are normal. OTHER FINDINGS: No apical pneumothorax. IMPRESSION: No acute fracture or traumatic anterior listhesis.
[2018-09-24] MEDS ORDERED: Tramadol 25 mg PO STA (13:24)
[2018-09-24] MEDS ORDERED: Tramadol 25 mg ONE (13:42)
[2018-09-24] MEDS: Dextrose 5%/0.45% NS 1,000 ML IV SCH (19:40)
--- NOTE | 2018-09-24 22:43 | CP.PCM.HP ---
Past Patient History - Infectious Disease Hx of Infectious Diseases: None - Past Medical History & Family History Past Medical History?: No - Past Social History Smoking Status: Former Smoker - CARDIAC Hx Cardiac Disorders: Yes Hx Heart Attack: Yes - PULMONARY Hx Respiratory Disorders: No - NEUROLOGICAL Hx Neurological Disorder: Yes HX Cerebrovascular Accident: Yes Other/Comment: "stroke since 2017 with left arm weakness and slurred speech". (from previous triage) - HEENT Hx HEENT Problems: No - ENDOCRINE/METABOLIC Hx Endocrine Disorders: No - HEMATOLOGICAL/ONCOLOGICAL Hx Blood Disorders: No - INTEGUMENTARY Hx Dermatological Problems: No - MUSCULOSKELETAL/RHEUMATOLOGICAL Hx Musculoskeletal Disorders: Yes - GASTROINTESTINAL Hx Gastrointestinal Disorders: No - GENITOURINARY/GYNECOLOGICAL Hx Genitourinary Disorders: No - PSYCHIATRIC Hx Substance Use: No - SURGICAL HISTORY Hx Surgeries: Yes - ANESTHESIA Hx Anesthesia: Yes Hx Anesthesia Reactions: No Meds Allergies/Adverse Reactions: Allergies Allergy/AdvReac Type Severity Reaction Status Date / Time No Known Allergies Allergy Verified 03/12/18 10:53 Results - Vital Signs Recent Vital Signs: Last Vital Signs Temp 97.9 F 09/24/18 17:41 Pulse 80 09/24/18 17:41 Resp 20 09/24/18 17:41 BP 96/64 L 09/24/18 17:41 Pulse Ox 100 09/24/18 22:25 - Labs Result Diagrams: 09/24/18 11:55 09/24/18 11:55 Labs: Laboratory Results - last 24 hr 09/24/18 09/24/18 09/24/18 11:27 11:55 11:55 WBC 6.8 RBC 3.43 L Hgb 11.6 L Hct 33.6 L MCV 97.9 H MCH 33.7 H MCHC 34.4 RDW 12.2 Plt Count 216 MPV 8.4 Neut % (Auto) 70.8 Lymph % (Auto) 21.9 [place] % (Auto) 6.0 Eos % (Auto) 0.8 Baso % (Auto) 0.5 Neut # (Auto) 4.8 Lymph # (Auto) 1.5 [place] # (Auto) 0.4 Eos # (Auto) 0.1 Baso # (Auto) 0.0 Sodium 145 Potassium 4.0 Chloride 100 Carbon Dioxide 32 H Anion Gap 17 BUN 18 Creatinine 0.7 L Est GFR ( Amer) > 60 Est GFR (Non-Af Amer) > 60 POC Glucose (mg/dL) 88 Random Glucose 91 Calcium 10.3 Total Bilirubin 3.8 H AST 38 ALT 27 Alkaline Phosphatase 68 Troponin I < 0.0120 Total Protein 7.9 Albumin 4.5 Globulin 3.4 Albumin/Globulin Ratio 1.3 Urine Color Urine Clarity Urine pH Ur Specific [place] Urine Protein Urine Glucose (UA) Urine Ketones Urine Blood Urine Nitrate Urine Bilirubin Urine Urobilinogen Ur Leukocyte Esterase Urine WBC (Auto) Urine Opiates Screen Urine Methadone Screen Ur Barbiturates Screen Ur Phencyclidine Scrn Ur Amphetamines Screen U Benzodiazepines Scrn U Oth Cocaine Metabols U Cannabinoids Screen Alcohol, Quantitative < 10 09/24/18 09/24/18 12:06 12:06 WBC RBC Hgb Hct MCV MCH MCHC RDW Plt Count MPV Neut % (Auto) Lymph % (Auto) [place] % (Auto) Eos % (Auto) Baso % (Auto) Neut # (Auto) Lymph # (Auto) [place] # (Auto) Eos # (Auto) Baso # (Auto) Sodium Potassium Chloride Carbon Dioxide Anion Gap BUN Creatinine Est GFR ( Amer) Est GFR (Non-Af Amer) POC Glucose (mg/dL) Random Glucose Calcium Total Bilirubin AST ALT Alkaline Phosphatase Troponin I Total Protein Albumin Globulin Albumin/Globulin Ratio Urine Color Vaishali Urine Clarity Clear Urine pH 5.0 Ur Specific [place] 1.028 Urine Protein Negative Urine Glucose (UA) Normal Urine Ketones 1+ H Urine Blood Negative Urine Nitrate Negative Urine Bilirubin Negative Urine Urobilinogen 2.0 Ur Leukocyte Esterase Neg Urine WBC (Auto) 1 Urine Opiates Screen Negative Urine Methadone Screen Negative Ur Barbiturates Screen Negative Ur Phencyclidine Scrn Negative Ur Amphetamines Screen Negative U Benzodiazepines Scrn Negative U Oth Cocaine Metabols Negative U Cannabinoids Screen Negative Alcohol, Quantitative
[2018-09-25] MEDS: Dextrose 5%/0.45% NS 1,000 ML IV SCH ×2 (08:43→21:51)
[2018-09-25] MEDS: Enoxaparin 40 mg Syringe SC SCH (09:26)
--- NOTE | 2018-09-25 16:45 | CP.PCM.PN ---
Subjective - Date & Time of Evaluation Date of Evaluation: 09/25/18 Time of Evaluation: 16:45 - Subjective Subjective: awake, alert, follows commands, no acute distress. Objective - Vital Signs/Intake and Output Vital Signs (last 24 hours): Temp Pulse Resp BP Pulse Ox 97.8 F 81 18 94/60 L 96 09/25/18 15:42 09/25/18 15:42 09/25/18 15:42 09/25/18 15:42 09/25/18 15:42 Intake and Output: 09/25/18 09/25/18 06:59 18:59 Intake Total 1230 890 Output Total 750 1600 Balance 480 -710 - Medications Medications: Current Medications Enoxaparin Sodium (Lovenox) 40 mg SC DAILY [facility] Last Admin: 09/25/18 09:26 Dose: 40 mg Dextrose/Sodium Chloride (Dextrose 5%/0.45% Ns 1000 Ml) 1,000 mls @ 80 mls/hr IV .[id number] [facility] Last Admin: 09/25/18 08:43 Dose: 80 mls/hr - Labs Labs: 09/24/18 11:55 09/24/18 11:55 Assessment and Plan - Assessment and Plan (Free Text) Assessment: 67 year old male admitted from home after fall and hit the left side. Rib and cervical xrays shows no acute fracture. Confused, left sided weakness from the old CVA. Awake, alert, follows commands. 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 Discussed with DR Roberts, plan to discharge home in am. Transportation to be arranged, home care and home PT to arrange. Advised to follow up with PMD in 1 week. Plan: awake, follows commands, left sided weakness, no acute distress.
--- NOTE | 2018-09-25 21:47 | CP.PCM.PN ---
Subjective - Subjective Subjective: dictated Objective - Vital Signs/Intake and Output Vital Signs (last 24 hours): Temp Pulse Resp BP Pulse Ox 97.8 F 81 18 94/60 L 96 09/25/18 15:42 09/25/18 15:42 09/25/18 15:42 09/25/18 15:42 09/25/18 18:58 Intake and Output: 09/25/18 09/26/18 18:59 06:59 Intake Total 890 Output Total 1600 Balance -710 - Medications Medications: Current Medications Enoxaparin Sodium (Lovenox) 40 mg SC DAILY [facility] Last Admin: 09/25/18 09:26 Dose: 40 mg Dextrose/Sodium Chloride (Dextrose 5%/0.45% Ns 1000 Ml) 1,000 mls @ 80 mls/hr IV .[id number] [facility] Last Admin: 09/25/18 08:43 Dose: 80 mls/hr - Labs Labs: 09/24/18 11:55 09/24/18 11:55
[2018-09-26 00:21] VITALS: RESP 20
[2018-09-26 00:46] VITALS: O2SAT 98
[2018-09-26 07:30] VITALS: BP 100/63; PULSE 76; TEMP 98
--- NOTE | 2018-09-26 08:26 | HP ---
DATE: 09/24/2018 CHIEF COMPLAINT: Fall, trauma. HISTORY OF PRESENT ILLNESS: This is a 67-year-old male with a history of stroke two times in the past. He was brought by ambulance after arrived home after she worked at night in the morning, and she found the patient on the floor, complaining of left head pain with abrasion on the left side of his forehead. The patient has been using alcohol. According to him, he did not drink any alcohol last night, and accordingly to him, he tripped and fell down hitting front of his head, and he is having some pain. He denies any seizure or loss of consciousness. He denies any tongue bite or incontinence of urine. He denies any substance abuse. He denies any history of dysuria, frequency, hematuria, or pyuria. He denies any nausea or vomiting. He denies any skin rash. He denies any history of polyuria, polydipsia, or polyphagia. The patient denies any sneezing, itchy eyes, or itchy nose. PAST MEDICAL HISTORY: Positive for alcoholism. CVA and back surgery. SOCIAL HISTORY: He smokes and he drinks. FAMILY HISTORY: Noncontributory. CURRENT MEDICATIONS: None. PHYSICAL EXAMINATION: GENERAL: An elderly male who is weak. He is awake, alert. He is afebrile. He has a small laceration on his forehead. VITAL SIGNS: Blood pressure 100/61, pulse 66, respiratory rate 18, and temperature 98. SKIN: The patient has A laceration with a scab on front of his left forehead. HEENT: Positive evidence of trauma . Pupils equally reactive to light and accommodation. NECK: Supple. No JVD. No lymph node. No thyromegaly. No carotid bruit. CHEST WALL: Bilaterally symmetrical expansion. No masses. LUNGS: Bilaterally clear. No rales. No rhonchi. CVA: PMI in the fifth intercostal space. S1 and S2 regular. No heave. No thrill. ABDOMEN: Soft and nontender. Bowel sounds are positive. RECTAL: Enlarged prostate. EXTREMITIES: No clubbing, cyanosis, or edema. DIETITIAN CONSULTANT: Awake, alert, and oriented x3. Cranial nerves II-XII are normal. Power 5/5 x4. ASSESSMENT: Fall, head injuries, could be a mechanical fall. It could be vertigo. It is less likely to be a seizure or cardiac ischemia. PLAN: Monitor the patient. Neuro check. IV fluids. Rohan Roberts MD
--- NOTE | 2018-09-26 08:26 | PN ---
DATE: 09/25/2018 SUBJECTIVE: Sandro Brian is feeling better. No adverse event. No nausea or vomiting. He is tolerating diet. His blood pressure is stable. No chest pain. TSH is normal. PHYSICAL EXAMINATION: VITAL SIGNS: Blood pressure 94/60, pulse 81, respiratory rate 18, and temperature 97.8. LUNGS: Clear. CVS: S1, S2 regular. ABDOMEN: Soft. ASSESSMENT: 1. Fall, most likely is mechanical. 2. Anemia. PLAN: Continue current medication. The patient is for discharge. Rohan Roberts MD
[2018-09-26] MEDS: Dextrose 5%/0.45% NS 1,000 ML IV SCH (08:30)
[2018-09-26] MEDS: Enoxaparin 40 mg Syringe SC SCH (09:28)
[2018-09-26] MEDS ORDERED: Pneumococcal 23-Valent Vaccine IM ONE (10:00)
[2018-09-26] MEDS ORDERED: Influenza Vaccine 60 MCG/0.5 ML SYR (3 yr & up) IM ONE (10:00)
--- NOTE | 2018-09-26 22:21 | CP.PCM.DIS ---
Provider - Provider Date of Admission: 09/24/18 14:47 Attending physician: Rohan Roberts MD Primary care physician: Rohan Roberts MD Hospital Course - Lab Results Lab Results: Most Recent Lab Values WBC 6.8 K/uL (4.8-10.8) 09/24/18 11:55 RBC 3.43 Mil/uL (4.40-5.90) L 09/24/18 11:55 Hgb 11.6 g/dL (12.0-18.0) L 09/24/18 11:55 Hct 33.6 % (35.0-51.0) L 09/24/18 11:55 MCV 97.9 fL (80.0-94.0) H 09/24/18 11:55 MCH 33.7 pg (27.0-31.0) H 09/24/18 11:55 MCHC 34.4 g/dL (33.0-37.0) 09/24/18 11:55 RDW 12.2 % (11.5-14.5) 09/24/18 11:55 Plt Count 216 K/uL (130-400) 09/24/18 11:55 MPV 8.4 fL (7.2-11.7) 09/24/18 11:55 Neut % (Auto) 70.8 % (50.0-75.0) 09/24/18 11:55 Lymph % (Auto) 21.9 % (20.0-40.0) 09/24/18 11:55 [place] % (Auto) 6.0 % (0.0-10.0) 09/24/18 11:55 Eos % (Auto) 0.8 % (0.0-4.0) 09/24/18 11:55 Baso % (Auto) 0.5 % (0.0-2.0) 09/24/18 11:55 Neut # (Auto) 4.8 K/uL (1.8-7.0) 09/24/18 11:55 Lymph # (Auto) 1.5 K/uL (1.0-4.3) 09/24/18 11:55 [place] # (Auto) 0.4 K/uL (0.0-0.8) 09/24/18 11:55 Eos # (Auto) 0.1 K/uL (0.0-0.7) 09/24/18 11:55 Baso # (Auto) 0.0 K/uL (0.0-0.2) 09/24/18 11:55 Sodium 145 mmol/L (132-148) 09/24/18 11:55 Potassium 4.0 mmol/L (3.6-5.2) 09/24/18 11:55 Chloride 100 mmol/L (98-107) 09/24/18 11:55 Carbon Dioxide 32 mmol/L (22-30) H 09/24/18 11:55 Anion Gap 17 (10-20) 09/24/18 11:55 BUN 18 mg/dL (9-20) 09/24/18 11:55 Creatinine 0.7 mg/dL (0.8-1.5) L 09/24/18 11:55 Est GFR ( Amer) > 60 09/24/18 11:55 Est GFR (Non-Af Amer) > 60 09/24/18 11:55 POC Glucose (mg/dL) 88 mg/dL (65-110) 09/24/18 11:27 Random Glucose 91 mg/dL (75-110) 09/24/18 11:55 Calcium 10.3 mg/dl (8.6-10.4) 09/24/18 11:55 Total Bilirubin 3.8 mg/dL (0.2-1.3) H 09/24/18 11:55 AST 38 U/L (17-59) 09/24/18 11:55 ALT 27 U/L (21-72) 09/24/18 11:55 Alkaline Phosphatase 68 U/L (38-126) 09/24/18 11:55 Troponin I < 0.0120 ng/mL (0.00-0.120) 09/24/18 11:55 Total Protein 7.9 g/dL (6.3-8.3) 09/24/18 11:55 Albumin 4.5 g/dL (3.5-5.0) 09/24/18 11:55 Globulin 3.4 gm/dL (2.2-3.9) 09/24/18 11:55 Albumin/Globulin Ratio 1.3 (1.0-2.1) 09/24/18 11:55 Vitamin B12 661 pg/mL (239-931) 09/25/18 08:26 TSH 3rd Generation 1.95 mIU/L (0.46-4.68) 09/25/18 08:26 Urine Color Vaishali (YELLOW) 09/24/18 12:06 Urine Clarity Clear (Clear) 09/24/18 12:06 Urine pH 5.0 (5.0-8.0) 09/24/18 12:06 Ur Specific [place] 1.028 (1.003-1.030) 09/24/18 12:06 Urine Protein Negative mg/dL (NEGATIVE) 09/24/18 12:06 Urine Glucose (UA) Normal mg/dL (Normal) 09/24/18 12:06 Urine Ketones 1+ mg/dL (NEGATIVE) H 09/24/18 12:06 Urine Blood Negative (NEGATIVE) 09/24/18 12:06 Urine Nitrate Negative (NEGATIVE) 09/24/18 12:06 Urine Bilirubin Negative (NEGATIVE) 09/24/18 12:06 Urine Urobilinogen 2.0 mg/dL (0.2-1.0) 09/24/18 12:06 Ur Leukocyte Esterase Neg Quynh/uL (Negative) 09/24/18 12:06 Urine WBC (Auto) 1 /hpf (0-5) 09/24/18 12:06 Urine Opiates Screen Negative (NEGATIVE) 09/24/18 12:06 Urine Methadone Screen Negative (NEGATIVE) 09/24/18 12:06 Ur Barbiturates Screen Negative (NEGATIVE) 09/24/18 12:06 Ur Phencyclidine Scrn Negative (NEGATIVE) 09/24/18 12:06 Ur Amphetamines Screen Negative (NEGATIVE) 09/24/18 12:06 U Benzodiazepines Scrn Negative (NEGATIVE) 09/24/18 12:06 U Oth Cocaine Metabols Negative (NEGATIVE) 09/24/18 12:06 U Cannabinoids Screen Negative (NEGATIVE) 09/24/18 12:06 Alcohol, Quantitative < 10 mg/dl (0-10) 09/24/18 11:55 Discharge Plan - Follow Up Plan Condition: STABLE Disposition: HOME/ ROUTINE Instructions: Preventing Falls in the Older Adult, Altered Mental Status (DC), Alcohol Abuse and Alcoholism (DC), Why Vaccines Are Important for Everyone Additional Instructions: Discharge home as per MD Follow up with Dr. Roberts in 1 week Referrals: Rohan Roberts MD [Primary Care Provider] -
--- NOTE | 2018-09-27 17:19 | CARD ---
APPROVED REPORT Date of service: 09/24/2018 EKG Measurement Heart [id number] <Conclusion> Normal sinus rhythm Right bundle branch block Abnormal ECG
--- NOTE | 2018-09-27 23:38 | DS ---
DISCHARGE DIAGNOSIS: Vasovagal syncope. HOSPITAL COURSE: This is a 67-year-old male with no significant medical problems. He syncopized at home. He was brought to the hospital. The patient was started on neuro watch, seizure and fall precaution. TSH and B12 levels were normal. The patient's CT head is normal. The patient is stable. He is being discharged with outpatient followup. He has a laceration on his forehead which has healed. The patient has . PHYSICAL EXAMINATION: VITAL SIGNS: Blood pressure 100/63, pulse 76, respiratory rate 20, temperature 98. LABORATORY DATA: WBC 6.8, hemoglobin 11.6, hematocrit 33.6, platelets are 216. Sodium 145, potassium 4, chloride 105, bicarb 32, BUN 18, creatinine 0.7. Total bilirubin 3.8. Urinalysis is normal. Urine drug screen is normal. CONDITION UPON DISCHARGE: Stable. Rohan Roberts MD
== END 2018-09-26 14:50 | disposition home or self-care (01) ==
LOC: C.ER 11:15 → C.9E 14:47 → C.3T 17:00
PROVIDERS: ADMIT Internal Medicine; ATTEND Internal Medicine
DX: R55 Syncope and collapse (principal); D64.9 Anemia, unspecified; F17.200 Nicotine dependence, unspecified, uncomplicated; I25.2 Old myocardial infarction; I69.254 Hemiplegia and hemiparesis following other nontraumatic intracranial hemorrhage affecting left non-dominant side
CPT/HCPCS: 36415; 70450; 71111; 72125; 80053; 81001; 82607; 82948; 84443; 84484; 85025; 93005; 97116; 97162; 99285; G0378; G0480; G8978; G8979; J1650; J7042

== ENCOUNTER 2018-12-07 04:22 | Emergency (ER) | payer MEDICARE ==
[2018-12-07 04:22] VITALS: BMI 24.9
--- NOTE | 2018-12-07 04:52 | C.PDOC ---
History Of Present Illness 68 year old male is presents to the ED accompanied by his c/o right hip and back pain. Patient reports he got up to go to the bathroom and fell. Patient has old abrasion on his left forehead and nasal bridge which happened couple days ago. Patient has deformity due to a previous dislocated left shoulder with residual no movement of left contracted hand. Patient denies LOC, syncopae, headache, dizziness, visual changes, nausea, vomit, weakness, numbness. Time Seen by Provider: 12/07/18 04:51 Chief Complaint (Nursing): Syncope History Per: Patient, Family History/Exam Limitations: no limitations Onset/Duration Of Symptoms: Hrs Current Symptoms Are (Timing): Still Present Number Of Syncopal Episodes: 1 Activity At Onset Of Symptoms: Walking Associated Symptoms Preceding Syncopal Episode: No Predromal Symptoms (Sudden Onset) Seizure Or Post-ictal Symptoms: None Fall Associated With With Symptoms: Yes Severity: None Recent travel outside of the [place]: No Additional History Per: Patient Past Medical History Reviewed: Historical Data, Nursing Documentation, Vital Signs - Medical History PMH: Back Problems, CVA Surgical History: Back Surgery Family History: States: Unknown Family Hx - Social History Hx Tobacco Use: No Hx Alcohol Use: Yes Hx Substance Use: No - Immunization History Hx Tetanus Toxoid Vaccination: Yes (2016) Hx Influenza Vaccination: No Hx Pneumococcal Vaccination: No Review Of Systems Constitutional: Negative for: Fever, Chills Eyes: Negative for: Vision Change Cardiovascular: Negative for: Chest Pain Respiratory: Negative for: Cough, Shortness of Breath Gastrointestinal: Negative for: Nausea, Vomiting, Abdominal Pain Musculoskeletal: Positive for: Back Pain, Leg Pain Skin: Negative for: Rash Neurological: Negative for: Weakness, Numbness, Headache, Dizziness Physical Exam - Physical Exam Appears: Non-toxic, No Acute Distress Skin: Warm, Dry Head: Normacephalic, Abrasion (old left sided forehead) Eye(s): bilateral: Normal Inspection, PERRL, EOMI Nose: Other (old abrasion nasal bridge ) Oral Mucosa: Moist Neck: No Midline Cervical Tenderness, Supple Chest: Symmetrical Cardiovascular: Rhythm Regular Respiratory: No Rales, No Rhonchi, No Wheezing Gastrointestinal/Abdominal: Soft, No Tenderness, No Guarding, No Rebound Back: No Vertebral Tenderness Extremity: Tenderness (right hip to palpation), Capillary Refill (< 2 seconds), Deformity (previous left shoulder due to old fracture) Extremity: Left: Other (hand contracted, no movement), Right: Atraumatic, Normal Color And Temperature, Normal ROM Pulses: Left Radial: Normal, Right Radial: Normal Neurological/Psych: Oriented x3, Normal Speech, Normal Cognition Gait: Steady ED Course And Treatment O2 Sat by Pulse Oximetry: 100 (ON RA) Pulse Ox Interpretation: Normal - CT Scan/US CT LS SPine Other Rad Studies (CT/US): Read By Radiologist, Radiology Report Reviewed CT/US Interpretation: CT scan of the lumbar spine without contrast. Indication: Fall. Technique: Axial CT scan images without contrast. Reformatted coronal and sagittal images. Findings: Mild osteopenia of the bones. Straightening of the lumbar lordosis, probably muscular spasm and pain. Mild degenerative levoscoliosis apex at L3. There are diffuse spondylotic changes. Findings are demonstrated by disc space narrowing, osteophyte formation and degenerative endplate changes. Facet joint arthropathy is noted. No fracture or dislocation is seen. No aggressive bone lesion is noted. Changes from prior left laminectomy at L5-S1. Moderate multilevel degenerative disc disease. Findings are demonstrated by diffuse disc bulges. Moderate concentric spinal canal st enosis is noted at L4-L5 and L5-S1 levels. Moderate to severe bilateral neural foramina narrowing from L3-S1 levels. Mild bilateral foramina narrowing from L1-L3 levels. Impression: Spondylosis. Multilevel facet joint arthropathy. No acute bone pathology. No CT evidence of an acute traumatic pathology. . Electronically signed on Dec 07, 2018 6:26:29 AM EST by: Naye Martinez M.D., Certified by [facility]ESS[facility] MSK, Neuroradiology CT Pelvis Other Rad Studies (CT/US): Read By Radiologist, Radiology Report Reviewed CT/US Interpretation: CT scan of the pelvis without contrast. Indication: Attention to the right hip. Fall. Technique: Axial CT scan images without contrast. Reformatted coronal and sagittal images. Findings: Mild osteopenia of the bones. There are changes of degenerative joint disease. No fracture or dislocation is seen. No aggressive bone lesion is noted. Impression: No CT evidence of an acute pathology. . Electronically signed on Dec 07, 2018 6:29:21 AM EST by: Naye Martinez M.D., Certified by ABR, MSK, Neuroradiology. Progress Note: Plan: - Motrin 600 mg PO. - CT pelvis. - CT LS spine Reevaluation Time: 06:56 Reassessment Condition: Improved Disposition Counseled Patient/Family Regarding: Studies Performed, Diagnosis, Need For Followup - Disposition Referrals: [facility] [Outside] [facility] [Outside] Disposition: HOME/ ROUTINE Disposition Time: 04:52 Condition: FAIR Additional Instructions: Please return if symptoms recur Prescriptions: Naproxen [Naprosyn] 1 tab PO BID PRN #25 tab PRN Reason: Pain Instructions: Contusion (DC) Forms: [employer] (Hebrew) Print Language: WELSH - Clinical Impression Clinical Impression: Fall, Contusion of right hip, Walking disability, Low back pain - Scribe Statement The provider has reviewed the documentation as recorded by the Scribe Serafin Spring All medical record entries made by the Scribe were at my direction and personally dictated by me. I have reviewed the chart and agree that the record accurately reflects my personal performance of the history, physical exam, medical decision making, and the department course for this patient. I have also personally directed, reviewed, and agree with the discharge instructions and disposition.
[2018-12-07 04:55] VITALS: RESP 16; O2SAT 100
[2018-12-07 07:25] VITALS: BP 101/62; PULSE 70; TEMP 98.6
--- NOTE | 2018-12-07 08:32 | CT ---
Date of service: 12/07/2018 PROCEDURE: CT HEAD WITHOUT CONTRAST. HISTORY: fall COMPARISON: 09/24/2018 TECHNIQUE: Axial computed tomography images were obtained through the head/brain without intravenous contrast. Radiation dose: Total exam DLP = 1070.46 mGy-cm. This CT exam was performed using one or more of the following dose reduction techniques: Automated exposure control, adjustment of the mA and/or kV according to patient size, and/or use of iterative reconstruction technique. FINDINGS: HEMORRHAGE: No intracranial hemorrhage. BRAIN: No mass effect or edema. Scattered focal lucencies in the subcortical and periventricular white matter suggestive for chronic microvascular ischemic change. Generalized parenchymal atrophy and volume loss. Punctate left thalamic lacunar infarct. Bilateral basal ganglia lacunar infarcts. Small lacunar infarcts in the right external capsule. Punctate left caudate head lacunar infarct. VENTRICLES: Unremarkable. No hydrocephalus. CALVARIUM: Unremarkable. PARANASAL SINUSES: Unremarkable as visualized. No significant inflammatory changes. MASTOID AIR CELLS: Unremarkable as visualized. No inflammatory changes. OTHER FINDINGS: None. IMPRESSION: No acute intracranial abnormality. Mild chronic microvascular ischemic change. Age appropriate cerebral and cerebellar atrophy. If symptoms persists, consider correlation with MRI. A preliminary report was generated at 6:56 a.m. on 12/07/[address] Naye Martinez from [employer]
--- NOTE | 2018-12-07 10:56 | CT ---
Date of service: 12/07/2018 PROCEDURE: CT Lumbar Spine without contrast HISTORY: fall COMPARISON: None available. TECHNIQUE: Axial computed tomography images were obtained of the lumbar spine without the use of intravenous contrast. Coronal and sagittal reformatted images were created and reviewed. Radiation dose: Total exam DLP = 375.11 mGy-cm. This CT exam was performed using one or more of the following dose reduction techniques: Automated exposure control, adjustment of the mA and/or kV according to patient size, and/or use of iterative reconstruction technique. FINDINGS: VERTEBRAE: Unremarkable. No fracture. Normal alignment. DISCS/SPINAL CANAL/NEURAL FORAMINA: Multilevel severe degenerative disc disease with Central canal stenosis in the lower lumbar spine secondary to disc bulges and facet arthropathy. PARASPINAL SOFT TISSUES: Unremarkable. OTHER FINDINGS: None. IMPRESSION: No acute fracture..
--- NOTE | 2018-12-07 11:14 | CT ---
Date of service: 12/07/2018 PROCEDURE: CT Pelvis without contrast HISTORY: att r hip COMPARISON: None available. TECHNIQUE: Contiguous axial images of the pelvis . No intravenous or oral contrast given. Coronal and sagittal reformats generated. Radiation dose: Total exam DLP = 182.07 mGy-cm. This CT exam was performed using one or more of the following dose reduction techniques: Automated exposure control, adjustment of the mA and/or kV according to patient size, and/or use of iterative reconstruction technique. FINDINGS: BLADDER: Unremarkable. No mass. REPRODUCTIVE ORGANS: Unremarkable. VISUALIZED BOWEL: Unremarkable. PERITONEUM: Unremarkable, as visualized. No free fluid. No free air. LYMPH NODES: Unremarkable. No enlarged lymph nodes. BONES: No fracture or focal lesion. VASCULATURE: No aortic atherosclerotic calcification or mural plaque present. OTHER FINDINGS: None. IMPRESSION: No acute fracture.
== END 2018-12-07 07:28 | disposition home or self-care (01) ==
LOC: C.ER 04:22
DX: S70.01XA Contusion of right hip, initial encounter (principal); W18.30XA Fall on same level, unspecified, initial encounter; M54.5 Low back pain; R26.2 Difficulty in walking, not elsewhere classified; Z86.73 Personal history of transient ischemic attack (TIA), and cerebral infarction without residual deficits

== ENCOUNTER 2019-04-19 16:56 | Inpatient (IN) | payer MEDICARE ==
[2019-04-19 16:56] VITALS: BMI 24.9
[2019-04-19 18:32] LABS: BASO % 0.4 % (0.0-2.0); EOS % 0.5 % (0.0-4.0); HEMOGLOBIN 11.2 g/dL (12.0-18.0); LYMPH # 1.2 K/uL (1.0-4.3); LYMPH % 19.7 % (20.0-40.0); MEAN CELL VOLUME 96.5 fL (80.0-94.0); MEAN CORPUSCULAR HEMOGLOBIN 32.5 pg (27.0-31.0); MEAN CORPUSCULAR HGB CONC 33.6 g/dL (33.0-37.0); MEAN PLATELET VOLUME 8.6 fL (7.2-11.7); MONO # 0.4 K/uL (0.0-0.8); MONO % 6.4 % (0.0-10.0); NEUT # 4.5 K/uL (1.8-7.0); RBC 3.44 Mil/uL (4.40-5.90); RED CELL DISTRIBUTION WIDTH 12.3 % (11.5-14.5); WHITE BLOOD COUNT 6.1 K/uL (4.8-10.8)
--- NOTE | 2019-04-19 18:34 | C.PDOC ---
History Of Present Illness 68 year old male with a history of stroke in 2006 presents to the emergency department status-post fall prior to arrival. As per patient's , patient reported feeling dizzy, and he fell off the couch onto the floor. Patient's also reports that she took his b Time Seen by Provider: 04/19/19 17:33 Chief Complaint (Nursing): Finger,Hand,&Wrist Past Medical History Vital Signs: Last Vital Signs Temp 98.5 F 04/19/19 17:04 Pulse 99 H 04/19/19 17:04 Resp 20 04/19/19 17:04 BP 105/68 04/19/19 17:04 Pulse Ox 98 04/19/19 17:04 Primary Care Provider: Non [facility] Provider, - Medical History PMH: Back Problems, CVA Surgical History: Back Surgery Family History: States: Unknown Family Hx - Social History Hx Tobacco Use: No Hx Alcohol Use: No Hx Substance Use: No - Immunization History Hx Tetanus Toxoid Vaccination: Yes (2015) Hx Influenza Vaccination: No Hx Pneumococcal Vaccination: No ED Course And Treatment O2 Sat by Pulse Oximetry: 98 Disposition - Disposition Forms: [employer] ([place]ese)
[2019-04-19 18:40] LABS: ALB/GLOB RATIO 1.3 (1.0-2.1); ALBUMIN 4.4 g/dL (3.5-5.0); ALT/SGPT 27 U/L (21-72); AST/SGOT 30 U/L (17-59); BLOOD UREA NITROGEN 22 mg/dL (9-20); GFR NON-AFRICAN AMERICAN > 60
--- NOTE | 2019-04-19 18:40 | C.PDOC ---
History Of Present Illness 68 year old male with a history of stroke in 2006 presents to the emergency department status-post fall prior to arrival. As per patient's , patient reported feeling dizzy, and he fell off the couch onto the floor. Patient's also reports that she took his blood pressure prior to his fall and it was noted to be low, she cannot remember the exact measurement. Patient complains of pain to his left hand. Per , patient's current behavior is per baseline. Time Seen by Provider: 04/19/19 17:33 Chief Complaint (Nursing): Finger,Hand,&Wrist History Per: Patient, Family () History/Exam Limitations: clinical condition Onset/Duration Of Symptoms: Hrs Current Symptoms Are (Timing): Still Present Quality: "Pain" Past Medical History Reviewed: Historical Data, Nursing Documentation, Vital Signs Vital Signs: Last Vital Signs Temp 98.5 F 04/19/19 17:04 Pulse 99 H 04/19/19 17:04 Resp 20 04/19/19 17:04 BP 105/68 04/19/19 17:04 Pulse Ox 98 04/19/19 17:04 Primary Care Provider: Non [facility] Provider, - Medical History PMH: Back Problems, CVA Surgical History: Back Surgery Family History: States: No Known Family Hx - Social History Hx Tobacco Use: No Hx Alcohol Use: No Hx Substance Use: No - Immunization History Hx Tetanus Toxoid Vaccination: Yes (2015) Hx Influenza Vaccination: No Hx Pneumococcal Vaccination: No Review Of Systems Review Of Systems: ROS cannot be obtained secondary to pt's inabilty to answer questions. Musculoskeletal: Positive for: Hand Pain (left) Physical Exam - Physical Exam Appears: Non-toxic, No Acute Distress, Other (frail, cachectic, muscle wasting, afebrile) Skin: Warm, Dry Head: Atraumatic, Normacephalic Eye(s): bilateral: Other (dilated pupils) Neck: Normal, No Midline Cervical Tenderness, No Paracervical Tenderness, Supple Chest: Symmetrical Cardiovascular: Rhythm Regular, No Murmur Respiratory: Normal Breath Sounds, No Rales, No Rhonchi, No Wheezing Gastrointestinal/Abdominal: Soft, No Tenderness, Other (scaphoid) Extremity: Tenderness (to the left hand over the second metacarpal), Swelling (to the left hand over the second metacarpal) Neurological/Psych: Other (poorly verbal, unable to answer questions, "b aseline") ED Course And Treatment - Laboratory Results Result Diagrams: 04/19/19 18:21 04/19/19 18:21 O2 Sat by Pulse Oximetry: 98 (RA) Pulse Ox Interpretation: Normal Medical Decision Making Medical Decision Making: Plan: VBG CT Head EKG Chemistry CBC CXR Blood Culture Urine Culture Urinalysis Disposition - Disposition Disposition Time: 19:08 Condition: GUARDED Forms: [facility] (Eth[place]ian) - POA Present On Arrival: None - Clinical Impression Clinical Impression: Pre-syncope - Scribe Statement The provider has reviewed the documentation as recorded by the Scribe (Francisco Barragan) Provider Attestation: All medical record entries made by the Scribe were at my direction and personally dictated by me. I have reviewed the chart and agree that the record accurately reflects my personal performance of the history, physical exam, medical decision making, and the department course for this patient. I have also personally directed, reviewed, and agree with the discharge instructions and disposition. Physician Patient Turnover Patient Signed Over To: Monica Mixon Handoff Comments: s/p pre-syncope, pendinng hand X ray and Obs
[2019-04-19 18:45] LABS: VENOUS BLOOD GAS BASE EXCESS 3.8 mmol/L (0.0-2.0); VENOUS BLOOD GAS PCO2 46 mmHg (40-60); VENOUS BLOOD GAS PO2 39 mm/Hg (30-55); VENOUS BLOOD PH 7.41 (7.32-7.43)
[2019-04-19 18:50] LABS: B-TYPE NATRIURETIC PEPTIDE 36.2 pg/mL (0-900)
[2019-04-19 19:36] LABS: SQUAMOUS EPITHIAL < 1 /hpf (0-5); URINE BILIRUBIN NEGATIVE (NEGATIVE); URINE BLOOD NEGATIVE (NEGATIVE); URINE CLARITY Clear (Clear); URINE COLOR Yellow (YELLOW); URINE GLUCOSE (UA) NORMAL (Normal); URINE LEUKOCYTE ESTERASE NEG Leu/uL (Negative); URINE PROTEIN NEGATIVE (NEGATIVE)
--- NOTE | 2019-04-19 20:31 | CP.PCM.HP ---
History of Present Illness - History of Present Illness History of Present Illness: 68 years or male admitted with history of fall with a fracture of the left metacarpal bone. As per the patient was having a dizzy spell and put out an outstretched arm to break the fall and subsequently sustained a fracture of the left third metacarpal bone. On reviewing further chart patient has multiple falls in the past has been admitted for fractures. Patient had a stroke since then patient's mental capacity is decreased there is no any obvious focal deficit. Patient only takes aspirin at home. Present on Admission - Present on Admission Any Indicators Present on Admission: No Review of Systems - Review of Systems All systems: reviewed and no additional remarkable complaints except (illicit review of system as patient does not have a focus of concentration) Past Patient History - Infectious Disease Hx of Infectious Diseases: None - Past Medical History & Family History Past Medical History?: No - Past Social History Smoking Status: Former Smoker - CARDIAC Hx Cardiac Disorders: Yes Hx Heart Attack: Yes - PULMONARY Hx Respiratory Disorders: No - NEUROLOGICAL Hx Neurological Disorder: No (Family denies any neurologic problem.) Other/Comment: "stroke since 2017 with left arm weakness and slurred speech". (from previous triage) - HEENT Hx HEENT Problems: No - ENDOCRINE/METABOLIC Hx Endocrine Disorders: No - HEMATOLOGICAL/ONCOLOGICAL Hx Blood Disorders: No - INTEGUMENTARY Hx Dermatological Problems: No - MUSCULOSKELETAL/RHEUMATOLOGICAL Hx Musculoskeletal Disorders: Yes (Lt. shoulder dislocation) - GASTROINTESTINAL Hx Gastrointestinal Disorders: No - GENITOURINARY/GYNECOLOGICAL Hx Genitourinary Disorders: No - PSYCHIATRIC Hx Substance Use: No - SURGICAL HISTORY Hx Surgeries: No - ANESTHESIA Hx Anesthesia: No Hx Anesthesia Reactions: No Meds Allergies/Adverse Reactions: Allergies Allergy/AdvReac Type Severity Reaction Status Date / Time No Known Allergies Allergy Verified 04/19/19 17:07 Physical Exam - Constitutional Appears: Well - Head Exam Head Exam: ATRAUMATIC, NORMAL INSPECTION, NORMOCEPHALIC - Eye Exam Eye Exam: EOMI, Normal appearance, PERRL Pupil Exam: NORMAL ACCOMODATION, PERRL - ENT Exam ENT Exam: Mucous Membranes Moist, Normal Exam - Neck Exam Neck exam: Positive for: Normal Inspection - Respiratory Exam Respiratory Exam: Clear to Auscultation Bilateral, NORMAL BREATHING PATTERN - Cardiovascular Exam Cardiovascular Exam: REGULAR RHYTHM - GI/Abdominal Exam GI & Abdominal Exam: Normal Bowel Sounds, Soft. absent: Tenderness - Extremities Exam Extremities exam: Positive for: full ROM (swelling and decreased range of motion of the left finger), normal inspection - Neurological Exam Neurological exam: Alert, CN II-XII Intact, Normal Gait, Oriented x3, Reflexes Normal Results - Vital Signs Recent Vital Signs: Last Vital Signs Temp 98.7 F 04/19/19 18:14 Pulse 76 04/19/19 20:10 Resp 12 04/19/19 20:10 BP 102/64 04/19/19 20:10 Pulse Ox 99 04/19/19 20:10 - Labs Result Diagrams: 04/19/19 18:21 04/19/19 18:21 Labs: Laboratory Results - last 24 hr 04/19/19 04/19/19 04/19/19 17:03 18:21 18:21 WBC 6.1 RBC 3.44 L Hgb 11.2 L Hct 33.2 L MCV 96.5 H MCH 32.5 H MCHC 33.6 RDW 12.3 Plt Count 201 MPV 8.6 Neut % (Auto) 73.0 Lymph % (Auto) 19.7 L [place] % (Auto) 6.4 Eos % (Auto) 0.5 Baso % (Auto) 0.4 Neut # (Auto) 4.5 Lymph # (Auto) 1.2 [place] # (Auto) 0.4 Eos # (Auto) 0.0 Baso # (Auto) 0.0 pO2 VBG pH VBG pCO2 VBG HCO3 VBG Total CO2 VBG O2 Sat (Calc) VBG Base Excess VBG Potassium Glucose Lactate Sodium 138 Potassium 4.4 Chloride 98 Carbon Dioxide 29 Anion Gap 15 BUN 22 H Creatinine 0.8 Est GFR ( Amer) > 60 Est GFR (Non-Af Amer) > 60 POC Glucose (mg/dL) 109 Random Glucose 97 Calcium 10.0 Total Bilirubin 1.7 H AST 30 ALT 27 Alkaline Phosphatase 76 Troponin I < 0.0120 NT-Pro-B Natriuret Pep 36.2 Total Protein 7.8 Albumin 4.4 Globulin 3.4 Albumin/Globulin Ratio 1.3 Venous Blood Potassium Urine Color Urine Clarity Urine pH Ur Specific [place] Urine Protein Urine Glucose (UA) Urine Ketones Urine Blood Urine Nitrate Urine Bilirubin Urine Urobilinogen Ur Leukocyte Esterase Urine WBC (Auto) Urine RBC (Auto) Ur Squamous Epith Cells 04/19/19 04/19/19 18:40 19:09 WBC RBC Hgb Hct MCV MCH MCHC RDW Plt Count MPV Neut % (Auto) Lymph % (Auto) [place] % (Auto) Eos % (Auto) Baso % (Auto) Neut # (Auto) Lymph # (Auto) [place] # (Auto) Eos # (Auto) Baso # (Auto) pO2 39 VBG pH 7.41 VBG pCO2 46 VBG HCO3 27.3 VBG Total CO2 30.6 H VBG O2 Sat (Calc) 75.6 H VBG Base Excess 3.8 H VBG Potassium 3.9 Glucose 90 Lactate 1.0 Sodium 137.0 Potassium Chloride 101.0 Carbon Dioxide Anion Gap BUN Creatinine Est GFR ( Amer) Est GFR (Non-Af Amer) POC Glucose (mg/dL) Random Glucose Calcium Total Bilirubin AST ALT Alkaline Phosphatase Troponin I NT-Pro-B Natriuret Pep Total Protein Albumin Globulin Albumin/Globulin Ratio Venous Blood Potassium 3.9 Urine Color Yellow Urine Clarity Clear Urine pH 6.0 Ur Specific [place] 1.027 Urine Protein Negative Urine Glucose (UA) Normal Urine Ketones Negative Urine Blood Negative Urine Nitrate Negative Urine Bilirubin Negative Urine Urobilinogen 4.0 Ur Leukocyte Esterase Neg Urine WBC (Auto) < 1 Urine RBC (Auto) 1 Ur Squamous Epith Cells < 1 Assessment & Plan (1) Fracture of metacarpal of left hand, closed Status: Acute (2) Pre-syncope Status: Acute
[2019-04-20 01:08] LABS: CK-MB 0.64 ng/mL (0.0-3.38)
--- NOTE | 2019-04-20 07:46 | CT ---
Date of service: 04/19/2019 PROCEDURE: CT HEAD WITHOUT CONTRAST. HISTORY: Fall. Altered mental status. COMPARISON: 12/07/2018 TECHNIQUE: Axial computed tomography images were obtained through the head/brain without intravenous contrast. Radiation dose: Total exam DLP = 1041.24 mGy-cm. This CT exam was performed using one or more of the following dose reduction techniques: Automated exposure control, adjustment of the mA and/or kV according to patient size, and/or use of iterative reconstruction technique. FINDINGS: HEMORRHAGE: No intracranial hemorrhage. BRAIN: No mass effect or edema. Scattered focal lucencies in the subcortical and periventricular white matter suggestive for chronic microvascular ischemic change. Diffuse generalized parenchymal atrophy. Bilateral external capsule lacunar infarcts. VENTRICLES: Prominent ventricles. CALVARIUM: Unremarkable. PARANASAL SINUSES: Unremarkable as visualized. No significant inflammatory changes. MASTOID AIR CELLS: Unremarkable as visualized. No inflammatory changes. OTHER FINDINGS: Soft tissue swelling overlying the left periorbital region. IMPRESSION: No acute intracranial abnormality. Chronic microvascular ischemic change. Bilateral external capsule lacunar infarcts. Diffuse generalized parenchymal atrophy. Soft tissue swelling overlying the left periorbital region. If symptoms persists, consider correlation with MRI. A preliminary report was generated 7:37 p.m. on 04/19/[address] Misael Sosa from [employer].
--- NOTE | 2019-04-20 10:18 | RAD ---
Date of service: 04/19/2019 HISTORY: Sepsis Patient COMPARISON: No prior. FINDINGS: LUNGS: No active pulmonary disease. PLEURA: No significant pleural effusion identified, no pneumothorax apparent. CARDIOVASCULAR: No aortic atherosclerotic calcification present. Normal cardiac size. OSSEOUS STRUCTURES: No significant abnormalities. VISUALIZED UPPER ABDOMEN: Normal. OTHER FINDINGS: None. IMPRESSION: No active disease.
[2019-04-20] MEDS: Aspirin 325 mg EC Tablets PO SCH (11:06)
--- NOTE | 2019-04-20 11:36 | CP.PCM.PN ---
Subjective - Date & Time of Evaluation Date of Evaluation: 04/20/19 Time of Evaluation: 11:35 - Subjective Subjective: NO ACUTE DISTRES VS STABLE P/E LEFT HAND PAIN NO NEURO DEFICIT NEURO W/U Objective - Vital Signs/Intake and Output Vital Signs (last 24 hours): Temp Pulse Resp BP Pulse Ox 97.5 F L 86 20 107/70 98 04/20/19 09:12 04/20/19 09:12 04/20/19 09:12 04/20/19 09:12 04/20/19 09:12 - Medications Medications: Current Medications Acetaminophen (Tylenol 325mg Tab) 650 mg PO Q6 PRN PRN Reason: Pain, moderate (4-7) Aspirin (Ecotrin) 325 mg PO DAILY MARQUITA Last Admin: 04/20/19 11:06 Dose: 325 mg - Labs Labs: 04/19/19 18:21 04/19/19 18:21 Assessment and Plan (1) Fracture of metacarpal of left hand, closed Status: Acute (2) Pre-syncope Status: Acute
--- NOTE | 2019-04-20 14:27 | CP.PCM.CON ---
History of Present Illness - History of Present Illness History of Present Illness: Orthopedic consultation Dr. jason 68M complains of left hand pain after fall yesterday. at bedside provides history, patient poor historian, difficult to understand speech. She states he was dizzy prior to the fall, and is unsteady at times and has multiple recent falls. He uses a walker most of the time to walk around the house, usually with assistance. Currently he is being fed by family member and she says that she needs to cut up his food but that he usually feeds himself. RHD. Denies pain other than left hand and at IV site (right forearm) at this time. says his blood pressure drops really low at times and he gets dizzy. Review of Systems - Review of Systems All systems: reviewed and no additional remarkable complaints except - Cardiovascular Cardiovascular: As Per HPI - Respiratory Respiratory: As Per HPI - Musculoskeletal Musculoskeletal: As Per HPI - Integumentary Additional comments: no bruising or cuts - Neurological Neurological: Frequent Falls - Hematologic/Lymphatic Hematologic: absent: As Per HPI, Easy Bleeding, Easy Bruising, Lymphadenopathy, Other Past Patient History - Infectious Disease Hx of Infectious Diseases: None - Past Medical History & Family History Past Medical History?: Yes Past Family History: Reviewed and not pertinent - Past Social History Smoking Status: Former Smoker - CARDIAC Hx Cardiac Disorders: Yes Hx Heart Attack: Yes - PULMONARY Hx Respiratory Disorders: No - NEUROLOGICAL Hx Neurological Disorder: No (Family denies any neurologic problem.) Other/Comment: "stroke since 2017 with left arm weakness and slurred speech". (from previous triage) - HEENT Hx HEENT Problems: No - ENDOCRINE/METABOLIC Hx Endocrine Disorders: No - HEMATOLOGICAL/ONCOLOGICAL Hx Blood Disorders: No - INTEGUMENTARY Hx Dermatological Problems: No - MUSCULOSKELETAL/RHEUMATOLOGICAL Hx Musculoskeletal Disorders: Yes (Lt. shoulder dislocation) - GASTROINTESTINAL Hx Gastrointestinal Disorders: No - GENITOURINARY/GYNECOLOGICAL Hx Genitourinary Disorders: No - PSYCHIATRIC Hx Substance Use: No - SURGICAL HISTORY Hx Surgeries: No - ANESTHESIA Hx Anesthesia: No Hx Anesthesia Reactions: No Meds Allergies/Adverse Reactions: Allergies Allergy/AdvReac Type Severity Reaction Status Date / Time No Known Allergies Allergy Verified 04/19/19 17:07 - Medications Medications: Current Medications Acetaminophen (Tylenol 325mg Tab) 650 mg PO Q6 PRN PRN Reason: Pain, moderate (4-7) Aspirin (Ecotrin) 325 mg PO DAILY MARQUITA Last Admin: 04/20/19 11:06 Dose: 325 mg Physical Exam - Constitutional Appears: No Acute Distress, Cachectic - Head Exam Head Exam: ATRAUMATIC - Neck Exam Neck exam: Positive for: Full Rom, Normal Inspection - Respiratory Exam Respiratory Exam: NORMAL BREATHING PATTERN - Cardiovascular Exam Additional comments: +cap refill to fingers volar splint intact - Expanded Upper Extremities Exam Left Neuro motor exam: finger 2-5 abduction intact, thumb abduction, thumb IP flexion intact, thumb opposition intact, wrist extension intact Neurosensory exam: median nerve intact, radial nerve intact, ulnar nerve intact - Neurological Exam Neurological exam: Alert - Psychiatric Exam Psychiatric exam: Normal Affect, Normal Mood - Skin Skin Exam: Dry, Intact, Normal Color, Warm Results - Vital Signs Recent Vital Signs: Last Vital Signs Temp 97.5 F L 04/20/19 09:12 Pulse 86 04/20/19 09:12 Resp 20 04/20/19 09:12 BP 107/70 04/20/19 09:12 Pulse Ox 98 04/20/19 09:12 - Labs Result Diagrams: 04/19/19 18:21 04/19/19 18:21 Labs: Laboratory Results - last 24 hr 04/19/19 04/19/19 04/19/19 17:03 18:21 18:21 WBC 6.1 RBC 3.44 L Hgb 11.2 L Hct 33.2 L MCV 96.5 H MCH 32.5 H MCHC 33.6 RDW 12.3 Plt Count 201 MPV 8.6 Neut % (Auto) 73.0 Lymph % (Auto) 19.7 L [place] % (Auto) 6.4 Eos % (Auto) 0.5 Baso % (Auto) 0.4 Neut # (Auto) 4.5 Lymph # (Auto) 1.2 [place] # (Auto) 0.4 Eos # (Auto) 0.0 Baso # (Auto) 0.0 pO2 VBG pH VBG pCO2 VBG HCO3 VBG Total CO2 VBG O2 Sat (Calc) VBG Base Excess VBG Potassium Glucose Lactate Sodium 138 Potassium 4.4 Chloride 98 Carbon Dioxide 29 Anion Gap 15 BUN 22 H Creatinine 0.8 Est GFR ( Amer) > 60 Est GFR (Non-Af Amer) > 60 POC Glucose (mg/dL) 109 Random Glucose 97 Calcium 10.0 Total Bilirubin 1.7 H AST 30 ALT 27 Alkaline Phosphatase 76 Total Creatine Kinase CK-MB (Mass) Troponin I < 0.0120 NT-Pro-B Natriuret Pep 36.2 Total Protein 7.8 Albumin 4.4 Globulin 3.4 Albumin/Globulin Ratio 1.3 Venous Blood Potassium Urine Color Urine Clarity Urine pH Ur Specific [place] Urine Protein Urine Glucose (UA) Urine Ketones Urine Blood Urine Nitrate Urine Bilirubin Urine Urobilinogen Ur Leukocyte Esterase Urine WBC (Auto) Urine RBC (Auto) Ur Squamous Epith Cells 04/19/19 04/19/19 04/20/19 18:40 19:09 00:26 WBC RBC Hgb Hct MCV MCH MCHC RDW Plt Count MPV Neut % (Auto) Lymph % (Auto) [place] % (Auto) Eos % (Auto) Baso % (Auto) Neut # (Auto) Lymph # (Auto) [place] # (Auto) Eos # (Auto) Baso # (Auto) pO2 39 VBG pH 7.41 VBG pCO2 46 VBG HCO3 27.3 VBG Total CO2 30.6 H VBG O2 Sat (Calc) 75.6 H VBG Base Excess 3.8 H VBG Potassium 3.9 Glucose 90 Lactate 1.0 Sodium 137.0 Potassium Chloride 101.0 Carbon Dioxide Anion Gap BUN Creatinine Est GFR ( Amer) Est GFR (Non-Af Amer) POC Glucose (mg/dL) Random Glucose Calcium Total Bilirubin AST ALT Alkaline Phosphatase Total Creatine Kinase 149 CK-MB (Mass) 0.64 Troponin I < 0.0120 NT-Pro-B Natriuret Pep Total Protein Albumin Globulin Albumin/Globulin Ratio Venous Blood Potassium 3.9 Urine Color Yellow Urine Clarity Clear Urine pH 6.0 Ur Specific [place] 1.027 Urine Protein Negative Urine Glucose (UA) Normal Urine Ketones Negative Urine Blood Negative Urine Nitrate Negative Urine Bilirubin Negative Urine Urobilinogen 4.0 Ur Leukocyte Esterase Neg Urine WBC (Auto) < 1 Urine RBC (Auto) 1 Ur Squamous Epith Cells < 1 Assessment & Plan (1) Fracture of shaft of third metacarpal bone of left hand Assessment and Plan: indicated for ORIF per Dr. Jason risks/benefits/alt discussed with patient and family patient currently under neuro workup per Dr. piper will discuss further after workup with family d/w Dr. Jason, agrees with above Status: Acute
--- NOTE | 2019-04-20 14:37 | RAD ---
PROCEDURE: Left Hand Radiographs. Three views. HISTORY: fall COMPARISON: None available. FINDINGS: BONES: Displaced oblique 3rd proximal metacarpal fracture deformity. The remainder the visualized osseous structures appear intact. JOINTS: No dislocation. SOFT TISSUES: Osseous demineralization. No evidence of radiopaque foreign body. Vascular calcifications. OTHER FINDINGS: None. IMPRESSION: Acute displaced oblique 3rd proximal metacarpal fracture deformity. Osseous demineralization. Degenerative changes. Study marked for PA review.
--- NOTE | 2019-04-20 23:57 | CARD ---
APPROVED REPORT Date of service: 04/19/2019 EKG Measurement Heart [id number] <Conclusion> Normal sinus rhythm Right bundle branch block Abnormal ECG
[2019-04-21 11:04] LABS: HDL CHOLESTEROL 46 mg/dL (30-70)
[2019-04-21 11:15] LABS: LDL CHOLESTEROL 33 mg/dL (0-129)
--- NOTE | 2019-04-21 11:33 | CP.PCM.PN ---
Subjective - Date & Time of Evaluation Date of Evaluation: 04/21/19 Time of Evaluation: 11:32 - Subjective Subjective: ALERT WITH DYSARTHRIC SPEECH P/E SAME MRI NOT DONE CHECK EEG /CAROTID PLANNING ORIF BY ORTHO Objective - Vital Signs/Intake and Output Vital Signs (last 24 hours): Temp Pulse Resp BP Pulse Ox 98.1 F 76 20 101/68 98 04/21/19 08:24 04/21/19 08:24 04/21/19 08:24 04/21/19 08:24 04/21/19 08:24 Intake and Output: 04/20/19 04/21/19 23:59 11:59 Intake Total 600 Output Total 400 Balance 200 - Medications Medications: Current Medications Acetaminophen (Tylenol 325mg Tab) 650 mg PO Q6 PRN PRN Reason: Pain, moderate (4-7) Aspirin (Ecotrin) 325 mg PO DAILY MARQUITA Last Admin: 04/20/19 11:06 Dose: 325 mg - Labs Labs: 04/19/19 18:21 04/19/19 18:21 Assessment and Plan (1) Fracture of metacarpal of left hand, closed Status: Acute (2) Pre-syncope Status: Acute
[2019-04-21] MEDS: Aspirin 325 mg EC Tablets PO SCH (13:05)
--- NOTE | 2019-04-21 14:32 | CP.PCM.PN ---
Subjective - Date & Time of Evaluation Date of Evaluation: 04/21/19 Time of Evaluation: 13:00 - Subjective Subjective: Patient seen and examined at bedside. Poor historian due to dementia. Pain well controlled. No new complaints. Objective - Vital Signs/Intake and Output Vital Signs (last 24 hours): Temp Pulse Resp BP Pulse Ox 98.1 F 76 20 101/68 98 04/21/19 08:24 04/21/19 08:24 04/21/19 08:24 04/21/19 08:24 04/21/19 08:24 - Medications Medications: Current Medications Acetaminophen (Tylenol 325mg Tab) 650 mg PO Q6 PRN PRN Reason: Pain, moderate (4-7) Aspirin (Ecotrin) 325 mg PO DAILY MARQUITA Last Admin: 04/21/19 13:05 Dose: 325 mg - Labs Labs: 04/19/19 18:21 04/19/19 18:21 - Extremities Exam Additional comments: LUE: short arm splint intact sensation and motor intact MN/UN/RN 2 sec cap refill all fingers. Assessment and Plan (1) Fracture of shaft of third metacarpal bone of left hand Assessment & Plan: Awaiting neurology clearance Maintain splint, NWB LUE Plan for ORIF 3rd MCP d/w Dr. Jason who agrees with above Status: Acute
--- NOTE | 2019-04-21 15:42 | MRI ---
Date of service: 04/21/2019 PROCEDURE: MRI BRAIN WITH AND WITHOUT CONTRAST HISTORY: TIA COMPARISON: None available. TECHNIQUE: Multiplanar, multisequence MR images of the brain were obtained with and without intravenous contrast enhancement. 10 cc of Omniscan FINDINGS: HEMORRHAGE: None DWI: No evidence of an acute or early subacute infarction. BRAIN PARENCHYMA: No mass,mass effect or edema. Moderate atrophy ENHANCEMENT: No abnormal intracranial enhancement. VENTRICLES: Unremarkable. No hydrocephalus. CRANIUM: Unremarkable. ORBITS: Grossly unremarkable. PARANASAL SINUSES/MASTOIDS: Clear VASCULAR SYSTEM: Skull base flow voids intact. OTHER FINDINGS: None . IMPRESSION: No acute intracranial findings
--- NOTE | 2019-04-21 21:46 | VASCLAB ---
Date of service: 04/20/2019 PROCEDURE: Carotid Duplex Exam. HISTORY: TIA COMPARISON: 11/10/2016 TECHNIQUE: Grayscale and duplex Doppler evaluation of the cervical carotid and vertebral arteries were performed. The common carotid, carotid bifurcations and cervical Internal Carotid Artery (ICA) and proximal External Carotid Artery (ECA) were evaluated. The vertebral arteries were evaluated for gross patency and flow direction. Report prepared by Miguel Montero, BS, RVT FINDINGS: RIGHT CAROTID ARTERIES: 1. Common Carotid Artery: No significant focal plaque formation of the right common carotid artery. Maximum Peak Systolic velocity: 77 cm/sec: End-diastolic velocity 19 cm/sec. 2. Carotid Bifurcation: Calcific plaque formation. Maximum Peak Systolic velocity: 96 cm/sec: End-diastolic velocity 22 cm/sec. 3. Internal Carotid Artery: Plaque description: Focal calcific plaque in the proximal segment. No evidence hemodynamically significant stenosis. 3.1. Proximal Segment: Peak systolic velocity 80 cm/sec: End-diastolic velocity 25 cm/sec - % stenosis 0-15% 3.2. Middle Segment: Peak systolic velocity 87 cm/sec: End-diastolic velocity 33 cm/sec - % stenosis 0-15% 3.3. Distal Segment: Peak systolic velocity 84 cm/sec: End-diastolic velocity 22 cm/sec - % stenosis 0-15% 4. External Carotid Artery: No significant focal plaque formation. Peak systolic velocity 101 cm/sec 5. ICA/CCA Ratio: 1.2 LEFT CAROTID ARTERIES: 1. Common Carotid Artery: No significant focal plaque formation of the left common carotid artery. Maximum Peak Systolic velocity: 86 cm/sec: End-diastolic velocity 16 cm/sec. 2. Carotid Bifurcation: Calcific plaque formation. Maximum Peak Systolic velocity: 80 cm/sec: End-diastolic velocity 16 cm/sec. 3. Internal Carotid Artery: Plaque description: Moderate calcific plaque. 3.1. Proximal Segment: Peak systolic velocity 90 cm/sec: End-diastolic velocity 28 cm/sec - % stenosis 0-15% 3.2. Middle Segment: Peak systolic velocity 111 cm/sec: End-diastolic velocity 36 cm/sec - % stenosis 0-15% 3.3. Distal Segment: Peak systolic velocity 39 cm/sec: End-diastolic velocity 13 cm/sec - % stenosis 0-15% 4. External Carotid Artery: No significant focal plaque formation. Peak systolic velocity 205 cm/sec 5. ICA/CCA Ratio: 1.3 VERTEBRAL ARTERIES: 1. Right Vertebral Artery: The right vertebral artery flow direction is antegrade. 2. Left Vertebral Artery: The left vertebral artery flow direction is antegrade. OTHER FINDINGS: 1. Right Brachial Blood pressure: 100 mmHg. IMPRESSION: RIGHT: Duplex scan does not suggest hemodynamically significant stenosis of the right extracranial carotid arteries. LEFT: Duplex scan does not suggest hemodynamically significant stenosis of the left extracranial carotid arteries.
[2019-04-22] MEDS: Aspirin 325 mg EC Tablets PO SCH (09:39)
--- NOTE | 2019-04-22 09:48 | PCM.EEG ---
Electroencephalogram Report - Electroencephalogram Report Procedure Date: 04/21/19 Medication: Tylenol Interpretation: Technical Information: This was a 16 -channel EEG, 1-channel EKG routine EEG performed using an [employer] machine. Electrodes were applied using the 10/20 international placement system. Start; 9;32 End; 9;55 Total 23 minutes. Clinical Information:Syncope Findings; During resting wakefulness there was a symmetric posterior dominant rhythm at 8.5-9.5 Hz, 30-50 uV, which was reactive to eye opening and closing. Drowsiness (9:50) was associated with fragmentation of the posterior dominant rhythm and with slow roving eye movements. Light sleep was not recorded. Hyperventilation was not performed. Photic stimulation was performed and there were no changes on the record. Focal abnormality; none ECG was associated with a normal sinus rhythm. . Impression: This is a normal awake and drowsy electroencephalogram
--- NOTE | 2019-04-22 11:07 | CP.PCM.PN ---
Subjective - Date & Time of Evaluation Date of Evaluation: 04/22/19 Time of Evaluation: 11:06 - Subjective Subjective: Patient speech a little more intelligible for me today. Asks when surgery is for hand. Complains of pain but controlled Objective - Vital Signs/Intake and Output Vital Signs (last 24 hours): Temp Pulse Resp BP Pulse Ox 97.8 F 76 20 91/52 L 94 L 04/22/19 07:00 04/22/19 07:00 04/22/19 07:00 04/22/19 07:00 04/22/19 07:00 - Medications Medications: Current Medications Acetaminophen (Tylenol 325mg Tab) 650 mg PO Q6 PRN PRN Reason: Pain, moderate (4-7) Aspirin (Ecotrin) 325 mg PO DAILY MARQUITA Last Admin: 04/22/19 09:39 Dose: 325 mg - Labs Labs: 04/19/19 18:21 04/19/19 18:21 - Extremities Exam Additional comments: Neuro motor exam: finger 2-5 abduction intact, thumb abduction, thumb IP flexion intact, thumb opposition intact, wrist extension intact Neurosensory exam: median nerve intact, radial nerve intact, ulnar nerve intact, patient follows commands easier today Assessment and Plan (1) Fracture of shaft of third metacarpal bone of left hand Assessment & Plan: indicated for ORIF per Dr. Jason risks/benefits/alt discussed with patient and family patient currently under neuro workup per Dr. piper will discuss further after workup with family d/w Dr. Jason, agrees with above Status: Acute
--- NOTE | 2019-04-22 11:12 | CP.PCM.PN ---
Subjective - Date & Time of Evaluation Date of Evaluation: 04/22/19 Time of Evaluation: 11:10 - Subjective Subjective: NEUROLOGY W/U IS NEG CLINICALLY NO CHANGE PT FOR ORIF LEFT 3 RD METACARPAL PER ORTHO PT. IS MEDICALLY CLEARED FOR ORTHO SURGERY Objective - Vital Signs/Intake and Output Vital Signs (last 24 hours): Temp Pulse Resp BP Pulse Ox 97.8 F 76 20 91/52 L 94 L 04/22/19 07:00 04/22/19 07:00 04/22/19 07:00 04/22/19 07:00 04/22/19 07:00 Intake and Output: 04/21/19 04/22/19 23:59 11:59 Intake Total 500 Balance 500 - Medications Medications: Current Medications Acetaminophen (Tylenol 325mg Tab) 650 mg PO Q6 PRN PRN Reason: Pain, moderate (4-7) Aspirin (Ecotrin) 325 mg PO DAILY MARQUITA Last Admin: 04/22/19 09:39 Dose: 325 mg - Labs Labs: 04/19/19 18:21 04/19/19 18:21 Assessment and Plan (1) Fracture of metacarpal of left hand, closed Status: Acute (2) Pre-syncope Status: Acute
[2019-04-22] MEDS ORDERED: Gadodiamide 287 MG/ML VIAL (15ML) IV ONE (11:57)
[2019-04-22 16:43] LABS: BASO % 0.2 % (0.0-2.0); EOS # 0.1 K/uL (0.0-0.7); EOS % 0.7 % (0.0-4.0); HEMOGLOBIN 10.7 g/dL (12.0-18.0); LYMPH # 1.9 K/uL (1.0-4.3); LYMPH % 21.1 % (20.0-40.0); MEAN CELL VOLUME 96.2 fL (80.0-94.0); MEAN CORPUSCULAR HEMOGLOBIN 33.6 pg (27.0-31.0); MEAN CORPUSCULAR HGB CONC 34.9 g/dL (33.0-37.0); MEAN PLATELET VOLUME 8.6 fL (7.2-11.7); MONO # 0.5 K/uL (0.0-0.8); MONO % 5.6 % (0.0-10.0); NEUT # 6.5 K/uL (1.8-7.0); NEUT % 72.4 % (50.0-75.0); RBC 3.18 Mil/uL (4.40-5.90); RED CELL DISTRIBUTION WIDTH 12.6 % (11.5-14.5)
[2019-04-22 16:52] LABS: INR 1.2; PARTIAL THROMBOPLASTIN TIME 32.2 SECONDS (21-34); PROTHROMBIN TIME 13.4 SECONDS (9.7-12.2)
[2019-04-22 17:10] LABS: ALB/GLOB RATIO 1.3 (1.0-2.1); ALBUMIN 4.1 g/dL (3.5-5.0); ALT/SGPT 22 U/L (21-72); AST/SGOT 21 U/L (17-59); BLOOD UREA NITROGEN 18 mg/dL (9-20); CALCIUM 9.5 mg/dl (8.6-10.4); GFR NON-AFRICAN AMERICAN > 60
[2019-04-23] MEDS: Aspirin 325 mg EC Tablets PO SCH (09:39)
--- NOTE | 2019-04-23 12:31 | CP.PCM.PN ---
Subjective - Date & Time of Evaluation Date of Evaluation: 04/23/19 Time of Evaluation: 12:31 - Subjective Subjective: NEUROLOGY W/U IS NEG CLINICALLY NO CHANGE PT FOR ORIF LEFT 3 RD METACARPAL PER ORTHO PT. IS MEDICALLY CLEARED FOR ORTHO SURGERY Objective - Vital Signs/Intake and Output Vital Signs (last 24 hours): Temp Pulse Resp BP Pulse Ox 98 F 75 20 94/62 L 96 04/23/19 07:00 04/23/19 07:00 04/23/19 07:00 04/23/19 07:00 04/23/19 07:00 - Medications Medications: Current Medications Acetaminophen (Tylenol 325mg Tab) 650 mg PO Q6 PRN PRN Reason: Pain, moderate (4-7) Aspirin (Ecotrin) 325 mg PO DAILY MARQUITA Last Admin: 04/23/19 09:39 Dose: 325 mg - Labs Labs: 04/22/19 16:39 04/22/19 16:39 PT 13.4 SECONDS (9.7-12.2) H 04/22/19 16:39 INR 1.2 04/22/19 16:39 APTT 32.2 SECONDS (21-34) 04/22/19 16:39 Assessment and Plan (1) Fracture of metacarpal of left hand, closed Status: Acute (2) Pre-syncope Status: Acute
[2019-04-24] MEDS: Aspirin 325 mg EC Tablets PO SCH (10:18)
--- NOTE | 2019-04-24 12:06 | CP.PCM.PN ---
Subjective - Date & Time of Evaluation Date of Evaluation: 04/24/19 Time of Evaluation: 12:05 - Subjective Subjective: NEUROLOGY W/U IS NEG CLINICALLY NO CHANGE PT FOR ORIF LEFT 3 RD METACARPAL PER ORTHO PT. IS MEDICALLY CLEARED FOR ORTHO SURGERY Objective - Vital Signs/Intake and Output Vital Signs (last 24 hours): Temp Pulse Resp BP Pulse Ox 98.3 F 75 20 102/60 99 04/23/19 23:25 04/23/19 23:25 04/23/19 23:25 04/23/19 23:25 04/23/19 23:25 - Medications Medications: Current Medications Acetaminophen (Tylenol 325mg Tab) 650 mg PO Q6 PRN PRN Reason: Pain, moderate (4-7) Aspirin (Ecotrin) 325 mg PO DAILY MARQUITA Last Admin: 04/24/19 10:18 Dose: 325 mg - Labs Labs: 04/22/19 16:39 04/22/19 16:39 PT 13.4 SECONDS (9.7-12.2) H 04/22/19 16:39 INR 1.2 04/22/19 16:39 APTT 32.2 SECONDS (21-34) 04/22/19 16:39 Assessment and Plan (1) Fracture of metacarpal of left hand, closed Status: Acute (2) Pre-syncope Status: Acute
--- NOTE | 2019-04-24 12:11 | CP.PCM.PN ---
Subjective - Date & Time of Evaluation Date of Evaluation: 04/24/19 Time of Evaluation: 12:11 - Subjective Subjective: NEUROLOGY W/U IS NEG CLINICALLY NO CHANGE PT FOR ORIF LEFT 3 RD METACARPAL PER ORTHO PT. IS MEDICALLY CLEARED FOR ORTHO SURGERY Objective - Vital Signs/Intake and Output Vital Signs (last 24 hours): Temp Pulse Resp BP Pulse Ox 98.3 F 75 20 102/60 99 04/23/19 23:25 04/23/19 23:25 04/23/19 23:25 04/23/19 23:25 04/23/19 23:25 - Medications Medications: Current Medications Acetaminophen (Tylenol 325mg Tab) 650 mg PO Q6 PRN PRN Reason: Pain, moderate (4-7) Aspirin (Ecotrin) 325 mg PO DAILY MARQUITA Last Admin: 04/24/19 10:18 Dose: 325 mg - Labs Labs: 04/22/19 16:39 04/22/19 16:39 PT 13.4 SECONDS (9.7-12.2) H 04/22/19 16:39 INR 1.2 04/22/19 16:39 APTT 32.2 SECONDS (21-34) 04/22/19 16:39 Assessment and Plan (1) Fracture of metacarpal of left hand, closed Status: Acute (2) Pre-syncope Status: Acute
[2019-04-25] MEDS: Aspirin 325 mg EC Tablets PO SCH (09:45)
--- NOTE | 2019-04-25 11:56 | CP.PCM.PN ---
Subjective - Date & Time of Evaluation Date of Evaluation: 04/25/19 Time of Evaluation: 11:55 - Subjective Subjective: NO MAJOR COMPLAINTS LEFT HAND IN SOFT CAST AWAITING ORTHO F/U NEUROLOGICAL NO NEW FINDINGS Objective - Vital Signs/Intake and Output Vital Signs (last 24 hours): Temp Pulse Resp BP Pulse Ox 97.7 F 73 20 94/59 L 97 04/25/19 08:34 04/25/19 08:34 04/25/19 08:34 04/25/19 08:34 04/25/19 08:34 Intake and Output: 04/24/19 04/25/19 23:59 11:59 Intake Total 360 Output Total 400 Balance -40 - Medications Medications: Current Medications Acetaminophen (Tylenol 325mg Tab) 650 mg PO Q6 PRN PRN Reason: Pain, moderate (4-7) Aspirin (Ecotrin) 325 mg PO DAILY MARQUITA Last Admin: 04/25/19 09:45 Dose: 325 mg - Labs Labs: 04/22/19 16:39 04/22/19 16:39 PT 13.4 SECONDS (9.7-12.2) H 04/22/19 16:39 INR 1.2 04/22/19 16:39 APTT 32.2 SECONDS (21-34) 04/22/19 16:39 Assessment and Plan (1) Fracture of metacarpal of left hand, closed Status: Acute (2) Pre-syncope Status: Acute
--- NOTE | 2019-04-26 10:36 | CP.PCM.PN ---
Subjective - Date & Time of Evaluation Date of Evaluation: 04/26/19 Time of Evaluation: 10:35 - Subjective Subjective: Patient complains of left hand pain. No new complaints. Objective - Vital Signs/Intake and Output Vital Signs (last 24 hours): Temp Pulse Resp BP Pulse Ox 97.7 F 67 20 95/62 L 98 04/26/19 08:25 04/26/19 08:25 04/26/19 08:25 04/26/19 08:25 04/26/19 08:25 - Medications Medications: Current Medications Acetaminophen (Tylenol 325mg Tab) 650 mg PO Q6 PRN PRN Reason: Pain, moderate (4-7) Last Admin: 04/25/19 14:34 Dose: 650 mg Aspirin (Ecotrin) 325 mg PO DAILY MARQUITA Last Admin: 04/25/19 09:45 Dose: 325 mg - Labs Labs: 04/22/19 16:39 04/22/19 16:39 PT 13.4 SECONDS (9.7-12.2) H 04/22/19 16:39 INR 1.2 04/22/19 16:39 APTT 32.2 SECONDS (21-34) 04/22/19 16:39 - Extremities Exam Additional comments: left hand: splint in place, moving fingers easier, sensation intact to fingers, +cap refill < 2 sec Assessment and Plan (1) Fracture of shaft of third metacarpal bone of left hand Assessment & Plan: patient still in house, will schedule for ORIF tomorrow NPO repeat labs d/w Dr. Jason, agrees with above Status: Acute
[2019-04-26 11:08] LABS: HEMOGLOBIN 11.6 g/dL (12.0-18.0); MEAN CELL VOLUME 95.2 fL (80.0-94.0); MEAN CORPUSCULAR HEMOGLOBIN 33.1 pg (27.0-31.0); MEAN CORPUSCULAR HGB CONC 34.8 g/dL (33.0-37.0); MEAN PLATELET VOLUME 8.2 fL (7.2-11.7); RBC 3.51 Mil/uL (4.40-5.90); RED CELL DISTRIBUTION WIDTH 12.5 % (11.5-14.5); WHITE BLOOD COUNT 6.3 K/uL (4.8-10.8)
[2019-04-26 11:23] LABS: BLOOD UREA NITROGEN 17 mg/dL (9-20); CALCIUM 9.7 mg/dl (8.6-10.4); GFR NON-AFRICAN AMERICAN > 60; INR 1.2; PARTIAL THROMBOPLASTIN TIME 33.9 SECONDS (21-34); PROTHROMBIN TIME 13.2 SECONDS (9.7-12.2)
--- NOTE | 2019-04-26 11:28 | CP.PCM.PN ---
Subjective - Date & Time of Evaluation Date of Evaluation: 04/26/19 Time of Evaluation: 11:27 - Subjective Subjective: NO MAJOR COMPLAINTS LEFT HAND IN SOFT CAST AWAITING ORTHO F/U NEUROLOGICAL NO NEW FINDINGS PT. IS MEDICALLY CLEARED FOR ORTHO SURGERY Objective - Vital Signs/Intake and Output Vital Signs (last 24 hours): Temp Pulse Resp BP Pulse Ox 97.7 F 67 20 95/62 L 98 04/26/19 08:25 04/26/19 08:25 04/26/19 08:25 04/26/19 08:25 04/26/19 08:25 Intake and Output: 04/25/19 04/26/19 23:59 11:59 Intake Total 480 Balance 480 - Medications Medications: Current Medications Acetaminophen (Tylenol 325mg Tab) 650 mg PO Q6 PRN PRN Reason: Pain, moderate (4-7) Last Admin: 04/25/19 14:34 Dose: 650 mg Aspirin (Ecotrin) 325 mg PO DAILY MARQUITA Last Admin: 04/25/19 09:45 Dose: 325 mg - Labs Labs: 04/26/19 11:04 04/26/19 11:04 PT 13.2 SECONDS (9.7-12.2) H 04/26/19 11:04 INR 1.2 04/26/19 11:04 APTT 33.9 SECONDS (21-34) 04/26/19 11:04 Assessment and Plan (1) Fracture of metacarpal of left hand, closed Status: Acute (2) Pre-syncope Status: Acute
[2019-04-26] MEDS: Aspirin 325 mg EC Tablets PO SCH (11:53)
--- NOTE | 2019-04-27 11:37 | CP.PCM.PN ---
Subjective - Date & Time of Evaluation Date of Evaluation: 04/27/19 Time of Evaluation: 11:36 - Subjective Subjective: NO MAJOR COMPLAINTS LEFT HAND IN SOFT CAST NEUROLOGICAL NO NEW FINDINGS OR TODAY PT. IS MEDICALLY CLEARED FOR ORTHO SURGERY Objective - Vital Signs/Intake and Output Vital Signs (last 24 hours): Temp Pulse Resp BP Pulse Ox 97.5 F L 78 20 100/66 95 04/27/19 08:19 04/27/19 08:19 04/27/19 08:19 04/27/19 08:19 04/27/19 08:19 Intake and Output: 04/26/19 04/27/19 23:59 11:59 Intake Total 960 Balance 960 - Medications Medications: Current Medications Acetaminophen (Tylenol 325mg Tab) 650 mg PO Q6 PRN PRN Reason: Pain, moderate (4-7) Last Admin: 04/25/19 14:34 Dose: 650 mg Aspirin (Ecotrin) 325 mg PO DAILY MARQUITA Last Admin: 04/26/19 11:53 Dose: Not Given - Labs Labs: 04/26/19 11:04 04/26/19 11:04 PT 13.2 SECONDS (9.7-12.2) H 04/26/19 11:04 INR 1.2 04/26/19 11:04 APTT 33.9 SECONDS (21-34) 04/26/19 11:04 Assessment and Plan (1) Fracture of metacarpal of left hand, closed Status: Acute (2) Pre-syncope Status: Acute
[2019-04-27] MEDS ORDERED: Midazolam 2 MG/2 ML VIAL ONE (16:35)
[2019-04-27] MEDS ORDERED: Propofol 10 mg/ml Inj (20 ML) ONE (16:36)
[2019-04-27] MEDS ORDERED: ceFAZolin 1 gm in NS 2 GM/200 ML BAG IVPB ONE (17:21)
[2019-04-27] MEDS ORDERED: Neostigmine 1:1000 (1 mg/ml) Inj ONE (19:17)
[2019-04-27] MEDS ORDERED: Bacitracin Ointment 30 GM TUBE ONE (19:20)
--- NOTE | 2019-04-27 19:25 | PCM.SURG1 ---
Surgeon's Initial Post Op Note - Surgeon's Notes Surgeon: Casie Boiler Riveter: RYAN Pfeiffer Type of Anesthesia: General Endo Anesthesia Administered By: DR Lynch Pre-Operative Diagnosis: displaced fx 3rd metacarpal/ delayed union 4th metacarpal base fx Operative Findings: displaced delayed union 3rd metacarpal fracture. malunion base 4th metacarpal fx(malunion/deayed union) Post-Operative Diagnosis: as above Operation Performed: OriF 4th mcp fx- delayed union/malunion. ORIF 3rd mcp delayed union/malunion. applx voplar splint Specimen/Specimens Removed: no specimen Estimated Blood Loss: EBL {In ML}: 5 Blood Products Given: N/A Drains Used: No Drains Post-Op Condition: Fair Date of Surgery/Procedure: 04/27/19 Time of Surgery/Procedure: 18:05 (time in room 1720/anaesthesia induction time )
[2019-04-27] MEDS ORDERED: HYDROmorphone 0.5 mg/0.5 ml ISec IVP PRN (19:51)
[2019-04-27] MEDS ORDERED: Oxycodone/Acetaminophen 5/325 mg Tab PO PRN ×2 (20:22)
[2019-04-28 02:41] VITALS: RESP 20
--- NOTE | 2019-04-28 09:40 | RAD ---
Date of service: 04/27/2019 PROCEDURE: Intraoperative Fluoroscopy. HISTORY: LEFT METACARPAL fractures FINDINGS: Fluoroscopic assistance was provided for 3rd and 4th metacarpal fracture repair. Please refer to the operative report from RICKEY Ozuna.
--- NOTE | 2019-04-28 12:05 | CP.PCM.DIS ---
Provider - Provider Date of Admission: 04/21/19 15:29 Attending physician: Jazmin Calero MD Consults: 04/19/19 19:58 Orthopedic Consult Routine Comment: Consulting Provider: Miguel Jason III Consulting Physician: Miguel Jason III Reason for Consult: Left arm fx 04/27/19 20:22 Case Management Referral Routine Comment: Physician Instructions: Reason For Exam: Reason for Referral: Discharge Planning Time Spent in preparation of Discharge (in minutes): 35 Diagnosis - Discharge Diagnosis (1) Fracture of metacarpal of left hand, closed Status: Acute (2) Pre-syncope Status: Acute Hospital Course - Lab Results Lab Results: Micro Results 04/19/19 19:30 Blood Blood Culture - Final NO GROWTH AFTER 5 DAYS 04/19/19 19:30 Blood Gram Stain - Final TEST NOT PERFORMED 04/19/19 18:20 Blood Blood Culture - Final NO GROWTH AFTER 5 DAYS 04/19/19 18:20 Blood Gram Stain - Final TEST NOT PERFORMED 04/19/19 19:09 Urine,Clean Catch Urine Culture - Final No Growth (<1,000 CFU/ML) Most Recent Lab Values WBC 6.3 K/uL (4.8-10.8) 04/26/19 11:04 RBC 3.51 Mil/uL (4.40-5.90) L 04/26/19 11:04 Hgb 11.6 g/dL (12.0-18.0) L 04/26/19 11:04 Hct 33.5 % (35.0-51.0) L 04/26/19 11:04 MCV 95.2 fL (80.0-94.0) H 04/26/19 11:04 MCH 33.1 pg (27.0-31.0) H 04/26/19 11:04 MCHC 34.8 g/dL (33.0-37.0) 04/26/19 11:04 RDW 12.5 % (11.5-14.5) 04/26/19 11:04 Plt Count 256 K/uL (130-400) 04/26/19 11:04 MPV 8.2 fL (7.2-11.7) 04/26/19 11:04 Neut % (Auto) 72.4 % (50.0-75.0) 04/22/19 16:39 Lymph % (Auto) 21.1 % (20.0-40.0) 04/22/19 16:39 [place] % (Auto) 5.6 % (0.0-10.0) 04/22/19 16:39 Eos % (Auto) 0.7 % (0.0-4.0) 04/22/19 16:39 Baso % (Auto) 0.2 % (0.0-2.0) 04/22/19 16:39 Neut # (Auto) 6.5 K/uL (1.8-7.0) 04/22/19 16:39 Lymph # (Auto) 1.9 K/uL (1.0-4.3) 04/22/19 16:39 [place] # (Auto) 0.5 K/uL (0.0-0.8) 04/22/19 16:39 Eos # (Auto) 0.1 K/uL (0.0-0.7) 04/22/19 16:39 Baso # (Auto) 0.0 K/uL (0.0-0.2) 04/22/19 16:39 PT 13.2 SECONDS (9.7-12.2) H 04/26/19 11:04 INR 1.2 04/26/19 11:04 APTT 33.9 SECONDS (21-34) 04/26/19 11:04 pO2 39 mm/Hg (30-55) 04/19/19 18:40 VBG pH 7.41 (7.32-7.43) 04/19/19 18:40 VBG pCO2 46 mmHg (40-60) 04/19/19 18:40 VBG HCO3 27.3 mmol/L 04/19/19 18:40 VBG Total CO2 30.6 mmol/L (22-28) H 04/19/19 18:40 VBG O2 Sat (Calc) 75.6 % (40-65) H 04/19/19 18:40 VBG Base Excess 3.8 mmol/L (0.0-2.0) H 04/19/19 18:40 VBG Potassium 3.9 mmol/L (3.6-5.2) 04/19/19 18:40 Sodium 137.0 mmol/l (132-148) 04/19/19 18:40 Chloride 101.0 mmol/L (98-107) 04/19/19 18:40 Glucose 90 mg/dl (75-110) 04/19/19 18:40 Lactate 1.0 mmol/L (0.7-2.1) 04/19/19 18:40 Sodium 139 mmol/L (132-148) 04/26/19 11:04 Potassium 3.9 mmol/L (3.6-5.2) 04/26/19 11:04 Chloride 100 mmol/L (98-107) 04/26/19 11:04 Carbon Dioxide 26 mmol/L (22-30) 04/26/19 11:04 Anion Gap 17 (10-20) 04/26/19 11:04 BUN 17 mg/dL (9-20) 04/26/19 11:04 Creatinine 0.6 mg/dL (0.8-1.5) L 04/26/19 11:04 Est GFR ( Amer) > 60 04/26/19 11:04 Est GFR (Non-Af Amer) > 60 04/26/19 11:04 POC Glucose (mg/dL) 109 mg/dL (65-110) 04/19/19 17:03 Random Glucose 116 mg/dL (75-110) H D 04/26/19 11:04 Calcium 9.7 mg/dl (8.6-10.4) 04/26/19 11:04 Total Bilirubin 1.3 mg/dL (0.2-1.3) 04/22/19 16:39 AST 21 U/L (17-59) 04/22/19 16:39 ALT 22 U/L (21-72) 04/22/19 16:39 Alkaline Phosphatase 75 U/L (38-126) 04/22/19 16:39 Total Creatine Kinase 149 U/L (55-170) 04/20/19 00:26 CK-MB (Mass) 0.64 ng/mL (0.0-3.38) 04/20/19 00:26 Troponin I < 0.0120 ng/mL (0.00-0.120) 04/20/19 00:26 NT-Pro-B Natriuret Pep 36.2 pg/mL (0-900) 04/19/19 18:21 Total Protein 7.4 g/dL (6.3-8.3) 04/22/19 16:39 Albumin 4.1 g/dL (3.5-5.0) 04/22/19 16:39 Globulin 3.3 gm/dL (2.2-3.9) 04/22/19 16:39 Albumin/Globulin Ratio 1.3 (1.0-2.1) 04/22/19 16:39 Triglycerides 35 mg/dL (0-149) 04/21/19 10:41 Cholesterol 83 mg/dL (0-199) 04/21/19 10:41 LDL Cholesterol Direct 33 mg/dL (0-129) 04/21/19 10:41 HDL Cholesterol 46 mg/dL (30-70) 04/21/19 10:41 Venous Blood Potassium 3.9 mmol/L (3.6-5.2) 04/19/19 18:40 Urine Color Yellow (YELLOW) 04/19/19 19:09 Urine Clarity Clear (Clear) 04/19/19 19:09 Urine pH 6.0 (5.0-8.0) 04/19/19 19:09 Ur Specific [place] 1.027 (1.003-1.030) 04/19/19 19:09 Urine Protein Negative mg/dL (NEGATIVE) 04/19/19 19:09 Urine Glucose (UA) Normal mg/dL (Normal) 04/19/19 19:09 Urine Ketones Negative mg/dL (NEGATIVE) 04/19/19 19:09 Urine Blood Negative (NEGATIVE) 04/19/19 19:09 Urine Nitrate Negative (NEGATIVE) 04/19/19 19:09 Urine Bilirubin Negative (NEGATIVE) 04/19/19 19:09 Urine Urobilinogen 4.0 mg/dL (0.2-1.0) 04/19/19 19:09 Ur Leukocyte Esterase Neg Quynh/uL (Negative) 04/19/19 19:09 Urine WBC (Auto) < 1 /hpf (0-5) 04/19/19 19:09 Urine RBC (Auto) 1 /hpf (0-3) 04/19/19 19:09 Ur Squamous Epith Cells < 1 /hpf (0-5) 04/19/19 19:09 - Hospital Course Hospital Course: 68 years or male admitted with history of fall with a fracture of the left metacarpal bone. As per the patient was having a dizzy spell and put out an outstretched arm to break the fall and subsequently sustained a fracture of the left third metacarpal bone. On reviewing further chart patient has multiple falls in the past has been admitted for fractures. Patient had a stroke since then patient's mental capacity is decreased there is no any obvious focal deficit. Patient only takes aspirin at home. NEURO W/P WAS NEG FOR ANY NEW FINDINGS PT WENT TO OR FOR ORIF OF L MCP JOINT PT CURRENTLY STABLE FOR D/C Discharge Exam - Head Exam Head Exam: ATRAUMATIC Discharge Plan - Follow Up Plan Condition: GUARDED Disposition: HOME/ ROUTINE
--- NOTE | 2019-04-28 13:43 | RAD ---
Left hand three views HISTORY: Open reduction internal fixation. COMPARISON: 04/19/2019 FINDINGS: Open reduction internal fixation with plate and screws at the level of the 3rd and 4th metacarpal bones. Overlying cast obscures fine osseous detail. Vascular calcifications. Impression: Status post open reduction internal fixation of 3rd and 4th metacarpal fractures.
[2019-04-28 16:31] VITALS: BP 98/47; PULSE 96; TEMP 99.1; O2SAT 98
--- NOTE | 2019-04-30 16:57 | OP ---
DATE OF SURGERY: 04/27/2019 PREOPERATIVE DIAGNOSIS: Displaced fracture third metacarpal. POSTOPERATIVE DIAGNOSES: 1. Displaced fracture third metacarpal. 2. Delayed union, malunion, fourth metacarpal base fracture, which did not show up on x-ray. OPERATIVE FINDINGS: 1. Displaced probable delayed union, third metacarpal fracture. 2. Malunion base fourth metacarpal fracture. OPERATIVE PROCEDURES: 1. Open reduction and internal fixation of displaced malunion and nonunion third metacarpal fracture. 2. Corrective osteotomy of malunion and nonunion of a base fourth metacarpal fracture. 3. Allograft and autograft bone grafting. 4. Positioning of fluoroscope, interpretation of video images. 5. Application of short-arm volar splint. SURGEON: Miguel Jason MD [facility] RESURFACER: DAMASO Alcaraz TYPE OF ANESTHESIA: General endotracheal anesthesia. ANESTHESIOLOGIST: Tj Lynch DO COMPLICATIONS: No complications. BLOOD LOSS: Approximately 5 mL BLOOD PRODUCTS GIVEN: No blood products given. DRAINS: No drains. POSTOPERATIVE CONDITION: Stable. TIME OF SURGERY: Time in the room 1720 INCISION TIME: 1805 OPERATIVE INDICATIONS: The patient is a 68-year-old gentleman who presents to [facility] with mental status difficulties, cognitive difficulties, and injury to the left hand. X-ray examination was accomplished, which revealed evidence of the aforementioned third metacarpal fracture. At the time of surgery, it was discovered a previous base fourth metacarpal fracture. Pros, cons, risks and benefits of surgical approach were discussed at length with the patient's . The patient's signed informed consent since, again, the patient has cognitive difficulties. He did not give prior history of injury to the hand, which is obviously inaccurate. The possibility of mechanical failure, infection, thromboembolic disease, possibility of secondary or tertiary surgery was discussed. The possibility of later secondary or tertiary surgery was discussed. The possibility that any intraoperative pathology discovered will be addressed at the time of surgery was discussed at length with the and with the patient. After the satisfactory induction of general endotracheal anesthesia by Dr. Lynch, after having identified the side, site, and procedure and a critical pause/timeout, after the satisfactory induction of the anesthetic, the patient identified as Sandro Brian in the supine position with all bony prominences well padded, the left upper extremity was prepped and free draped in usual fashion for upper extremity surgery. The tourniquet had been applied, but is not yet inflated. Under the surgeon's direction, the fluoroscope was positioned, video images were generated, therapeutic decisions were made therefrom. This having been accomplished with the surgeon positioning the fluoroscope, video images were interpreted and therapeutic decisions were made therefrom. There was found to be evidence of aforementioned third metacarpal fracture. There was evidence in retrospect of the malunion and delayed union of the fourth metatarsal base fracture. DESCRIPTION OF PROCEDURE: After having obtained informed consent, after having identified the side, site, and procedure and a critical pause/timeout, after the satisfactory induction of the anesthetic, left upper extremity was prepped and free draped in the usual fashion for upper extremity surgery. After sterilely prepping and draping, the upper extremity was exsanguinated using a 4-inch Esmarch bandage. The tourniquet, which had been applied, was insufflated to 250 mmHg. The operation was performed under 2.0 eyeglass magnification. An incision was described between the third and fourth extensor tendon superficial to the ulnar aspect of the third metacarpal and the radial aspect of the fourth metacarpal. The skin incision was carried down through the skin and subcutaneous tissue. The patient has extremely tissue paper type of skin; therefore, retraction was not used on the skin. Stay sutures were applied, the dissection was carried out first on the fourth metacarpal, periosteum is elevated. There was found to be a fracture line delayed at the base of the fourth metacarpal. A 0.25 inch osteotome was placed in and the malunion was developed and was curetted of healing callus and the fracture at this point in time was reduced. The reduction having been found to be excellent and corrected, the corrective osteotomy having been accomplished, the plate was applied to the dorsal radial aspect of the metacarpal. A 2.0 plate was applied. Each sequential drill hole was drilled, sounded and the appropriate size screw was placed. Autograft and allograft bone grafting was accomplished with DBX. This having been accomplished, under the surgeon's direction, the fluoroscope was positioned, video images were generated, therapeutic decisions were made therefrom. There was found to be aforementioned fracture of the third metacarpal. The third metacarpal was addressed at this point in time. The third metacarpal was clearly a malunion and a nonunion. Fibrous tissue was removed. The fracture was reduced and held with a circumferential #2 FiberWire suture. This having been accomplished, the plate was also applied on the dorsal aspect of the metacarpal radially. Each sequential drill hole was drilled, sounded, and the appropriate size screw was placed. Autograft and allograft bone grafting was accomplished to the fracture site after correction of the delayed union and nonunion. The wound was thoroughly irrigated. Closure of the periosteal sleeve was with interrupted Vicryl. The wound having been thoroughly irrigated, bone grafting having been accomplished, closure was with interrupted Vicryl and nylon. Onesimo Almazan compression dressing and large splint was applied. Verification of position was offered on AP and lateral image intensification views and found to be acceptable. The patient was transferred from the operating table to the stretcher having tolerated the procedure well. Miguel Jason MD
== END 2019-04-28 22:30 | disposition home or self-care (01) | DRG 514 ==
LOC: C.ER 16:56 → C.9E 19:55 → C.6T 20:26 → OBSVTOIN 04-21 15:29
PROVIDERS: ADMIT Internal Medicine Cardiovascular Disease; ATTEND Internal Medicine Cardiovascular Disease
PROC: 0PSQ04Z Reposition Left Metacarpal with Internal Fixation Device, Open Approach (ICD-10-PCS; 2019-04-27)
PROC: 0PU Upper Bones, Supplement (ICD-10-PCS; 2019-04-27)
PROC: 0PSQ04Z Reposition Left Metacarpal with Internal Fixation Device, Open Approach (ICD-10-PCS; principal; 2019-04-27 14:00)
DX: S62.323A Displaced fracture of shaft of third metacarpal bone, left hand, initial encounter for closed fracture (principal); W08.XXXA Fall from other furniture, initial encounter; Z79.82 Long term (current) use of aspirin; I65.29 Occlusion and stenosis of unspecified carotid artery; Z87.891 Personal history of nicotine dependence; F03.90 Unspecified dementia, unspecified severity, without behavioral disturbance, psychotic disturbance, mood disturbance, and anxiety; I69.2 Sequelae of other nontraumatic intracranial hemorrhage; I69.234 Monoplegia of upper limb following other nontraumatic intracranial hemorrhage affecting left non-dominant side